=== PATIENT | female | born 1935 | race Caucasian/White ===

== ENCOUNTER → 2017-01-29 | Outpatient (CLI) | payer MEDICARE, BC ==
[~2017-01-29] MED LIST: AMBI10TA PO; LEXA10TA PO; LORA-392 PO; LORTA5 PO
[2017-01-29 15:44] LABS: HEMATOCRIT 42.2 % (35.0-46.0); MEAN CELL VOLUME 96.9 FL (80.0-100.0); MEAN CORPUSCULAR HEMOGLOBIN 33.2 PG (27.0-34.0); MEAN CORPUSCULAR HGB CONC 34.3 % (32.0-36.0); PLATELET COUNT 110 TH/MM3 (150-450); RED BLOOD COUNT 4.36 MIL/MM3 (4.00-5.30); RED CELL DISTRIBUTION WIDTH 13.2 % (11.6-17.2); REVIEW FLAG FINAL; WHITE BLOOD COUNT 4.3 TH/MM3 (4.0-11.0)
[2017-01-29 16:08] LABS: ALT (GPT) 25 U/L (10-53); ANION GAP 9 MEQ/L (5-15); AST (GOT) 43 U/L (15-37); BICARBONATE 24.7 MEQ/L (21.0-32.0); BLOOD UREA NITROGEN 17 MG/DL (7-18); CHLORIDE 106 MEQ/L (98-107); GLOMERULAR FILTRATION RATE 30 ML/MIN (>89); GLUCOSE,FASTING 93 MG/DL (74-99); SODIUM (NA) 140 MEQ/L (136-145)
[2017-01-29 16:10] LABS: POTASSIUM 4.5 MEQ/L (3.5-5.1)
[2017-01-29 16:30] LABS: ALKALINE PHOSPHATASE 61 U/L (45-117); HDL CHOLESTEROL 47.9 MG/DL (40.0-60.0); LDL CHOLESTEROL 122 MG/DL (0-99); LDL CHOLESTEROL DIRECT 136 MG/DL (0-99); TOTAL BILIRUBIN ADULT 0.6 MG/DL (0.2-1.0)
[2017-01-29 19:59] LABS: WESTERGREN SEDIMENTATION RATE 12 mm/hr (0-30)
== END ==
LOC: PLAB 11:48
PROVIDERS: ATTEND Family Medicine
DX: R53.83 Other fatigue (principal); E78.4 Other hyperlipidemia; M35.3 Polymyalgia rheumatica; E53.8 Deficiency of other specified B group vitamins
CPT/HCPCS: 36415; 80053; 80061; 82607; 83721; 84443; 85027; 85652

== ENCOUNTER 2017-12-06 19:47 | Emergency (ER) | payer MEDICARE, BC ==
[~2017-12-06] VITALS: Ht 167.6 cm; Wt 85.8 kg
[2017-12-06 19:55] VITALS: BP 141/70; PULSE 63; RESP 16; TEMP 97.8; O2SAT 96
[2017-12-06] MEDS ORDERED: AMBI10TA PO (20:27)
[2017-12-06] MEDS ORDERED: LORA-392 PO (20:27)
[2017-12-06] MEDS ORDERED: HYDR-3366 PO (20:27)
[2017-12-06] MEDS ORDERED: LEXA10TA PO (20:27)
--- NOTE | 2017-12-06 21:11 | RADRPT ---
EXAM DATE/TIME: 12/06/2017 20:48 [place] COMPARISON: CT BRAIN W/O CONTRAST, January 29, 2016, 18:16. INDICATIONS : Trauma fall, hit left side of head. RADIATION DOSE: 60.00 CTDIvol (mGy) MEDICAL HISTORY : Cardiovascular disease. SURGICAL HISTORY : None. ENCOUNTER: Initial ACUITY: 1 day PAIN SCALE: 7/10 LOCATION: Left cranial TECHNIQUE: Multiple contiguous axial images were obtained of the head. Using automated exposure control and adj ustment of the mA and/or kV according to patient size, radiation dose was kept as low as reasonably a chievable to obtain optimal diagnostic quality images. DICOM format image data is available electro nically for review and comparison. FINDINGS: CEREBRUM: There is stable moderate generalized atrophy. Ventricles are normal in size given the degree of atrop hy present. No evidence of midline shift, mass lesion, hemorrhage or acute infarction. No extra-axi al fluid collections are seen. POSTERIOR FOSSA: The cerebellum and brainstem are intact. The 4th ventricle is midline. The cerebellopontine angle i s unremarkable. EXTRACRANIAL: Visualized sinuses are clear. SKULL: The calvaria is intact. No evidence of skull fracture. CONCLUSION: No acute intracranial abnormality is identified. There is stable generalized atrophy. Aden Douglas MD on December 06, 2017 at 21:08 Board Certified Radiologist. This report was verified electronically.
--- NOTE | 2017-12-06 21:25 | PD ---
HPI . Head injury Chief Complaint: Fall Time Seen by Provider: 20:20 Travel History International Travel<30 days: No Contact w/Intl Traveler<30days: No Traveled to known affect area: No History of Present Illness HPI Patient presents for the evaluation of an injury to her head. She reportedly fell from a chair to the floor. There was no loss of consciousness. She does not take any anticoagulant. She is complaining of localized pain. She rates the pain at 9/10 and has not taken anything for it prior to arrival. Pain is exacerbated by palpation. PFSH Past Medical History Arthritis: Yes Anxiety: Yes (RECENT) Depression: Yes (RECENT) Cancer: Yes Cardiovascular Problems: Yes High Cholesterol: Yes Chemotherapy: Yes Diminished Hearing: No Gastrointestinal Disorders: Yes GERD: Yes Genitourinary: Yes Implanted Vascular Access Dvce: No Musculoskeletal: Yes Neurologic: Yes Psychiatric: Yes Reproductive: No Respiratory: No Tetanus Vaccination: < 5 Years Influenza Vaccination: Yes PNEUMOCCOCAL Vaccine (Year): 2009 ?: Not Menopausal: Yes Tubal Ligation: Yes Past Surgical History Other Surgery: No Social History Alcohol Use: No Tobacco Use: No Substance Use: No Allergies-Medications (Allergen,Severity, Reaction): Coded Allergies: cefadroxil (Unverified Allergy, Mild, 12/06/17) erythromycin base (Unverified Allergy, Mild, 12/06/17) penicillin G (Unverified Allergy, Mild, 12/06/17) Reported Meds & Prescriptions Reported Meds & Active Scripts Active Reported Ambien (Zolpidem Tartrate) 10 Mg Tab 10 Mg PO HS PRN Ativan (Lorazepam) 0.5 Mg Tab 0.5 Mg PO BID PRN Prentiss (Hydrocodone-Acetaminophen) 10-325 Mg Tab 1 Tab PO Q4H PRN Lexapro (Escitalopram Oxalate) 10 Mg Tab 10 Mg PO DAILY Review of Systems Except as stated in HPI: all other systems reviewed are Neg Physical Exam Narrative GENERAL: Awake and alert and in no acute distress. SKIN: Warm and dry. HEAD: Contusion palpable on the left side of her scalp. EYES: Pupils are equal. Extraocular movements are intact. NECK: Normal range of motion. RESPIRATORY: Nonlabored respirations. MUSCULOSKELETAL: Atraumatic. NEUROLOGICAL: A and O 3. She has been observed walking to the bathroom with no focal neurological deficits. PSYCHIATRIC: Appropriate mood and affect. Data Data Last Documented VS Vital Signs Date Time Temp Pulse Resp B/P (MAP) Pulse Ox O2 Delivery O2 Flow Rate FiO2 12/06/17 20:24 Room Air 12/06/17 19:55 97.8 63 16 141/70 (93) [address] Brain W/O Iv Contrast(Rout) (12/06/17 20:21) Ed Discharge Order (12/06/17 21:40) MDM Medical Decision Making Medical Screen Exam Complete: Yes Emergency Medical Condition: Yes Differential Diagnosis My differential diagnosis of head trauma includes but is not limited to scalp contusion, concussion, intracerebral hemorrhage. Narrative Course This patient presents for the evaluation of an injury to her head. She fell from a chair and struck her head. There was no reported loss of consciousness. She does not take an anticoagulant. Last Impressions Head CT 12/06/172020 Signed Impressions: Service Date/Time: Wednesday, December 06, 2017 20:48 - CONCLUSION: No acute intracranial abnormality is identified. There is stable generalized atrophy. Aden Douglas MD Diagnosis Primary Impression: Scalp contusion Qualified Codes: S00.03XA - Contusion of scalp, initial encounter Patient Instructions: General Instructions, Scalp Contusion in Adults (ED) Disposition: 01 DISCHARGE HOME Condition: Stable Talita Reyes MD Dec 06, 2017 21:25
== END 2017-12-06 21:50 | disposition home or self-care (01) ==
LOC: PHEFT 19:47
DX: S00.03XA Contusion of scalp, initial encounter (principal); E78.00 Pure hypercholesterolemia, unspecified; I25.10 Atherosclerotic heart disease of native coronary artery without angina pectoris; F32.9 Major depressive disorder, single episode, unspecified; W07.XXXA Fall from chair, initial encounter; Z88.0 Allergy status to penicillin; Z88.1 Allergy status to other antibiotic agents; Z79.899 Other long term (current) drug therapy
CPT/HCPCS: 70450; 99283

== ENCOUNTER 2018-03-21 18:47 | Emergency (ER) | payer MEDICARE, BC ==
[~2018-03-21 18:47] MED LIST changes: +HYDR-3366 PO; -LORTA5 PO
[2018-03-21 18:56] VITALS: BP 176/75; PULSE 70; RESP 20; TEMP 98.2; O2SAT 97
[2018-03-21] MEDS ORDERED: VITA250C3 CHEW (19:16)
[2018-03-21] MEDS ORDERED: CYAN30003 SL (19:16)
[2018-03-21 19:17] VITALS: BP 136/84; PULSE 60; RESP 18; O2SAT 94
--- NOTE | 2018-03-21 19:41 | PD ---
HPI Chief Complaint: Dizziness Time Seen by Provider: 19:31 Travel History International Travel<30 days: No Contact w/Intl Traveler<30days: No Traveled to known affect area: No History of Present Illness HPI 83-year-old female presents to the emergency department from her assisted living facility by private transportation the care of her daughter for complaint of dizziness and fall. According to the daughter the patient has history of dementia/memory disturbance anxiety depression insomnia and arthritis. Patient has had several falls within the past 6 months. Patient was seen in November for a fall CT brain noncontrast at that time revealed no acute abnormality more recently within the past couple months she has had another fall landed on her buttock and was not evaluated for that fall patient has complained of some hip pain since that time. Patient fell again today after complaint of preceding dizziness. Patient continues to complain of dizziness and has been unsteady on her feet reportedly since the fall. No complaint of pain except for posterior occiput and upper back area. Patient is not aware of having loss of consciousness and staff did not report loss of consciousness. Patient does have a small laceration abrasion to the left posterior occiput scalp. Patient denies any neck pain. Patient denies any low back pain. Patient has had chronic buttock and right hip pain since her prior fall. Daughter reports that patient has had some increased confusion since Friday or of this week which sometimes occurs according to the daughter yesterday reportedly patient was quite confused but patient was not sent for evaluation at that time. Due to ongoing confusion today patient had a urine specimen collected and sent for resulting which did not show evidence of infection. Patient apparently continued to complain of dizziness and then finally had a fall just prior to arrival to the emergency department. Patient does not report increased dizziness. Patient typically ambulates with the assistance of a walker. Patient takes no blood thinning agents. No prior history of rhythm disturbance. No reported history of prior TIA or CVA. Patient here does not complain of headache pain. Patient reported pain is 3/10 in intensity. Patient's history primarily as provided by the daughter but intermittently substantiated by the patient. Unable to identify exacerbating or alleviating factors. PFSH Past Medical History Narrative Medical Arthritis anxiety depression insomnia dementia/memory loss dyslipidemia lymphoma status post chemotherapy GERD UTI; no tobacco use no alcohol use; nursing notes and medical record review Arthritis: Yes Anxiety: Yes (RECENT) Depression: Yes (RECENT) Cancer: Yes Cardiovascular Problems: Yes High Cholesterol: Yes Chemotherapy: Yes Diminished Hearing: No Endocrine: No Gastrointestinal Disorders: Yes GERD: Yes Genitourinary: Yes Immune Disorder: No Implanted Vascular Access Dvce: No Musculoskeletal: Yes Neurologic: Yes Psychiatric: Yes Reproductive: No Respiratory: No Tetanus Vaccination: < 5 Years Influenza Vaccination: Yes PNEUMOCCOCAL Vaccine (Year): 2009 Menopausal: Yes Tubal Ligation: Yes Past Surgical History Other Surgery: No Social History Alcohol Use: No Tobacco Use: No Substance Use: No Allergies-Medications (Allergen,Severity, Reaction): Coded Allergies: cefadroxil (Unverified Allergy, Mild, 03/21/18) erythromycin base (Unverified Allergy, Mild, 03/21/18) penicillin G (Unverified Allergy, Mild, 03/21/18) Reported Meds & Prescriptions Reported Meds & Active Scripts Active Reported Vitamin C (Ascorbic Acid) 250 Mg Chew 1,000 Mg CHEW DAILY B-12 (Cyanocobalamin) 3,000 Mcg Subl 3,000 Mcg SL DAILY Ambien (Zolpidem Tartrate) 10 Mg Tab 10 Mg PO HS PRN Ativan (Lorazepam) 0.5 Mg Tab 0.5 Mg PO BID PRN Taiban (Hydrocodone-Acetaminophen) 10-325 Mg Tab 1 Tab PO Q4H PRN Lexapro (Escitalopram Oxalate) 10 Mg Tab 10 Mg PO DAILY Review of Systems Except as stated in HPI: all other systems reviewed are Neg General / Constitutional: No: Fever, Chills HENT: No: Congestion Cardiovascular: No: Chest Pain or Discomfort Respiratory: No: Shortness of Breath Gastrointestinal: No: Nausea, Vomiting, Abdominal Pain Genitourinary: No: Dysuria, Flank Pain Musculoskeletal: Positive: Pain (upper mid back), No: Myalgias, Arthralgias Skin: No Rash Neurologic: Positive: Weakness, Dizziness, Ataxia, Change in Mentation, No: Focal Abnormalities, Coordination Problem, Headache, Slurred Speech, Paresthesia , Sensory Disturbance Psychiatric: Positive: Anxiety, Depression, No: Suicidal Ideations Endocrine: No: Heat Intolerance, Cold Intolerance Hematologic/Lymphatic: No: Easy Bruising Physical Exam Narrative GENERAL: Well-developed well-nourished elderly female in no acute distress no respiratory distress GCS 15 SKIN: Warm and dry. HEAD: Atraumatic. Normocephalic. Except for right posterior occiput abrasion subcentimeter laceration with no palpable bony abnormality. EYES: Pupils equal and round. No scleral icterus. No injection or drainage. ENT: No nasal bleeding or discharge. Mucous membranes pink and moist. Airway is patent. NECK: Trachea midline. No JVD. No midline tenderness to direct palpation along the cervical spine no bony step-off. CARDIOVASCULAR: Regular rate and rhythm. RESPIRATORY: No accessory muscle use. Clear to auscultation. Breath sounds equal bilaterally. GASTROINTESTINAL: Abdomen soft, non-tender, nondistended. Hepatic and splenic margins not palpable. MUSCULOSKELETAL: Extremities without clubbing, cyanosis, or edema. No obvious deformities. Mild tenderness to palpation along the mid thoracic spine no bony abnormality no lumbar spine tenderness no SI joint tenderness pelvis is stable. No CVA tenderness. NEUROLOGICAL: Awake and alert. No obvious cranial nerve deficits. Motor grossly within normal limits. Five out of 5 muscle strength in the arms and legs. No pronator drift. Normal speech. PSYCHIATRIC: Appropriate mood and affect; insight and judgment normal. Data Data Last Documented VS Vital Signs Date Time Temp Pulse Resp B/P (MAP) Pulse Ox O2 Delivery O2 Flow Rate FiO2 03/21/18 21:34 66 18 138/82 (100) 95 Room Air 03/21/18 18:56 98.2 Orders Orders Electrocardiogram (03/21/18 19:31) Basic Metabolic Panel (Bmp) (03/21/18 19:31) Complete Blood Count With Diff (03/21/18 19:31) Magnesium (Mg) (03/21/18 19:31) Ckmb (Isoenzyme) Profile (03/21/18 19:31) Troponin I (03/21/18 19:31) Act Partial Throm Time (Ptt) (03/21/18 19:31) Prothrombin Time / Inr (Pt) (03/21/18 19:31) Chest, Single Ap (03/21/18 19:31) Ct Brain W/O Iv Contrast(Rout) (03/21/18 19:31) Ecg Monitoring (03/21/18 19:31) Iv Access Insert/Monitor (03/21/18 19:31) Oximetry (03/21/18 19:31) Sodium Chloride 0.9% Flush (Ns Flush) (03/21/18 19:45) Spine, Thoracic-Ap/Lat/Sw(3vw) (03/21/18 ) Pelvis, Ap Only (Routine) (03/21/18 ) CKMB (03/21/18 20:10) CKMB% (03/21/18 20:10) Sodium Chlorid 0.9% 500 Ml Inj (Ns 500 M (03/21/18 21:45) Urinalysis - C+S If Indicated (03/21/18 22:05) Urine Culture (03/21/18 22:00) Nitrofurantoin Monohyd Macrocr (Macrobid (03/21/18 23:00) Ed Discharge Order (03/21/18 23:14) Labs Laboratory Tests Test 03/21/18 20:10 03/21/18 22:00 White Blood Count 5.4 TH/MM3 Red Blood Count 4.22 MIL/MM3 Hemoglobin 13.9 GM/DL Hematocrit 40.7 % Mean Corpuscular Volume 96.5 FL Mean Corpuscular Hemoglobin 33.0 PG Mean Corpuscular Hemoglobin Concent 34.2 % Red Cell Distribution Width 13.5 % Platelet Count 178 TH/MM3 Mean Platelet Volume 8.1 FL Neutrophils (%) (Auto) 83.3 % Lymphocytes (%) (Auto) 10.5 % Monocytes (%) (Auto) 4.8 % Eosinophils (%) (Auto) 0.9 % Basophils (%) (Auto) 0.5 % Neutrophils # (Auto) 4.5 TH/MM3 Lymphocytes # (Auto) 0.6 TH/MM3 Monocytes # (Auto) 0.3 TH/MM3 Eosinophils # (Auto) 0.0 TH/MM3 Basophils # (Auto) 0.0 TH/MM3 CBC Comment DIFF FINAL Differential Comment Prothrombin Time 10.5 SEC Prothromb Time International Ratio 1.0 RATIO Activated Partial Thromboplast Time 22.0 SEC Blood Urea Nitrogen 18 MG/DL Creatinine 1.30 MG/DL Random Glucose 144 MG/DL Calcium Level 9.3 MG/DL Magnesium Level 2.2 MG/DL Sodium Level 141 MEQ/L Potassium Level 4.0 MEQ/L Chloride Level 106 MEQ/L Carbon Dioxide Level 27.8 MEQ/L Anion Gap 7 MEQ/L Estimat Glomerular Filtration Rate 39 ML/MIN Total Creatine Kinase 260 U/L Creatine Kinase MB 2.9 NG/ML Creatine Kinase MB % 1.1 % Troponin I LESS THAN 0.02 NG/ML Urine Color YELLOW Urine Turbidity CLEAR Urine pH 6.0 Urine Specific Daisy LESS/EQUAL 1.005 Urine Protein NEG mg/dL Urine Glucose (UA) NEG mg/dL Urine Ketones NEG mg/dL Urine Occult Blood NEG Urine Nitrite NEG Urine Bilirubin NEG Urine Urobilinogen 0.2 MG/DL Urine Leukocyte Esterase SMALL Urine RBC 0-3 /hpf Urine WBC 9-14 /hpf Urine WBC Clumps FEW Urine Squamous Epithelial Cells 0-5 /hpf Microscopic Urinalysis Comment CULTURE INDICATED MDM Medical Decision Making Medical Screen Exam Complete: Yes Emergency Medical Condition: Yes Medical Record Reviewed: Yes (Cardiac catheterization [address] Randolph showed normal LV function and 20-30% left main disease as well as 20-30% mid distal right coronary artery disease with recommendation for medical management and lowering of patient's elevated lipids) Interpretation(s) EKG sinus rhythm rate 63 first-degree AV block no acute ST elevation injury pattern or ectopy noted Troponin I: Less than 0.02, not elevated Last Impressions Head CT 03/21/181930 Signed Impressions: CONCLUSION: 1. No acute intracranial abnormalities. Cortical volume loss. Chest X-Ray 03/21/181930 Signed Impressions: CONCLUSION: Elevated right hemidiaphragm with minimal basilar atelectasis. Thoracic Spine X-Ray 03/21/18 0000 Signed Impressions: CONCLUSION: Moderate degenerative disc disease. No acute bony abnormality. Pelvis X-Ray 03/21/18 0000 Signed Impressions: CONCLUSION: No acute fracture. Mild osteopenia. CBC & BMP Diagram 03/21/18 20:10 Calcium Level 9.3, Magnesium Level 2.2 Vital Signs Date Time Temp Pulse Resp B/P (MAP) Pulse Ox O2 Delivery O2 Flow Rate FiO2 03/21/18 21:34 66 18 138/82 (100) 95 Room Air 03/21/18 19:59 96 Room Air 03/21/18 19:17 60 18 136/84 (101) 94 Room Air 03/21/18 19:17 60 96 Room Air 03/21/18 18:56 98.2 70 20 176/75 (108) 97 Differential Diagnosis Dizziness, vertigo, labyrinthitis, TIA, CVA, arrhythmia, anemia, minor closed head injury, ICH, sepsis, ACS, UTI Narrative Course Patient presents with urinalysis report from earlier today which shows no evidence of acute infectious process no WBCs no bacteria no nitrites culture not indicated; patient placed on hall monitor continuous pulse oximetry EKG ordered specimens collected and sent for resulting CT brain noncontrast ordered along with limited thoracic spine x-ray and pelvic x-ray ( reports pain to area since prior fall that was not evaluated). Per medical record last tetanus booster 01/29/16 CT brain noncontrast reveals no acute intracranial process or bony abnormality or skull fracture remainder of imaging studies reveal no acute abnormality Patient resting comfortably Patient given a bolus of normal saline 500 cc Urinalysis is abnormal oral antibiotic Macrobid 100 mg by mouth and prescription for Macrobid cultures pending Patient is stable at this time for outpatient follow-up with her primary care provider daughter is staying with the patient overnight to decrease risk of unobserved or unattended care related fall at her assisted living facility; patient is to return the emergency department for fever worsening symptoms or any concerns or change in condition. Patient tolerating oral hydration well Diagnosis Primary Impression: Dizziness Additional Impressions: UTI (urinary tract infection) Renal insufficiency Scalp abrasion Minor closed head injury Referrals: Primary Care Physician 2 days Patient Instructions: General Instructions Additional Instructions: Complete course of antibiotic Follow head injury precautions 24 hours Monitor closely for risk of fall Encourage fluid hydration Follow-up with primary care provider Administer as needed acetaminophen/Tylenol for minor pain or for fever 100.4F or greater Return to the emergency department for any concerns or change in condition May apply ice pack intermittently to areas of soft tissue contusion or injury as needed for the first 12-24 hours intermittently Keep wound site clean and dry Med/Other Pt SpecificInfo: Prescription(s) given Scripts Nitrofurantoin Monohydrate Macrocrystals (Macrobid) 100 Mg Cap 100 MG PO BID for Infection for 7 Days, #14 CAP 0 Refills Prov: Gaby Leon MD 03/21/18 Disposition: 01 DISCHARGE HOME Condition: Stable Gaby Leon MD Mar 21, 2018 19:41
[2018-03-21] MEDS ORDERED: SODIUM CHLORIDE 0.9% FLUSH 10 ML FLUSH IVF PRN (19:45)
[2018-03-21 19:59] VITALS: O2SAT 96
--- NOTE | 2018-03-21 20:07 | RADRPT ---
EXAM DATE: 03/21/2018 7:59 PM EDT AGE/SEX: 83 years / Female INDICATIONS: Dizziness. Fell and hit head, no loss of consciousness. CLINICAL DATA: This is the patient's initial encounter. Patient reports that signs and symptoms have been present for 1 day and indicates a pain score of 2/10. MEDICAL/SURGICAL HISTORY: Cardiovascular disease. Dementia. Tubal ligation. RADIATION DOSE: 58.40 CTDI (mGy) COMPARISON: [facility], CT BRAIN W/O CONTRAST, 12/06/2017. . TECHNIQUE: CT of the head without contrast. Using automated exposure control and adjustment of the mA and/or kV according to patient size, radiation dose was kept as low as reasonably achievable to ob tain optimal diagnostic quality images. FINDINGS: Cerebrum: The ventricles are normal for age. No evidence of midline shift, mass lesion, hemorrhage or acute infarction. No extraaxial fluid collections are seen. Posterior Fossa: The cerebellum and brainstem are intact. The 4th ventricle is midline. The cerebe llopontine angle is unremarkable. Extracranial: The visualized portion of the orbits is intact. Skull: The calvaria is intact. No evidence of skull fracture. CONCLUSION: 1. No acute intracranial abnormalities. Cortical volume loss. Electronically signed by: Owen Rossi MD 03/21/2018 8:05 PM EDT
[2018-03-21 20:35] LABS: AUTOMATED NEUTROPHIL # 4.5 TH/MM3 (1.8-7.7); BASOPHIL % 0.5 % (0.0-2.0); EOSINOPHIL % 0.9 % (0.0-4.0); HEMATOCRIT 40.7 % (35.0-46.0); HEMOGLOBIN 13.9 GM/DL (11.6-15.3); LYMPH % 10.5 % (9.0-44.0); LYMPHOCYTE # 0.6 TH/MM3 (1.0-4.8); MEAN CELL VOLUME 96.5 FL (80.0-100.0); MEAN CORPUSCULAR HGB CONC 34.2 % (32.0-36.0); MEAN PLATELET VOLUME 8.1 FL (7.0-11.0); MONO % 4.8 % (0.0-8.0); MONOCYTE # 0.3 TH/MM3 (0-0.9); NEUT % 83.3 % (16.0-70.0); PLATELET COUNT 178 TH/MM3 (150-450); RED BLOOD COUNT 4.22 MIL/MM3 (4.00-5.30); RED CELL DISTRIBUTION WIDTH 13.5 % (11.6-17.2); WHITE BLOOD COUNT 5.4 TH/MM3 (4.0-11.0)
[2018-03-21 20:37] LABS: CHLORIDE 106 MEQ/L (98-107); SODIUM (NA) 141 MEQ/L (136-145)
[2018-03-21 20:40] LABS: BICARBONATE 27.8 MEQ/L (21.0-32.0); BLOOD UREA NITROGEN 18 MG/DL (7-18); CALCIUM 9.3 MG/DL (8.5-10.1); GLUCOSE,RANDOM 144 MG/DL (74-106); MAGNESIUM 2.2 MG/DL (1.5-2.5)
--- NOTE | 2018-03-21 20:42 | RADRPT ---
EXAM DATE: 03/21/2018 8:38 PM EDT AGE/SEX: 83 years / Female INDICATIONS: Fall. Mid back pain. CLINICAL DATA: This is the patient's initial encounter. Patient reports that signs and symptoms have been present for 1 day and indicates a pain score of 5/10. MEDICAL/SURGICAL HISTORY: Cardiovascular disease. Tubal ligation. COMPARISON: [facility], CHEST PA & LAT, 12/11/2010. . FINDINGS: Moderate degenerative disc disease throughout the thoracic spine. Mild superior endplate depression a t L1 which is smooth and may be old. No acute fracture identified in the thoracic spine. CONCLUSION: Moderate degenerative disc disease. No acute bony abnormality. Electronically signed by: Owen Rossi MD 03/21/2018 8:41 PM EDT
--- NOTE | 2018-03-21 20:43 | RADRPT ---
EXAM DATE: 03/21/2018 8:37 PM EDT AGE/SEX: 83 years / Female INDICATIONS: Fall. Right pelvic pain. CLINICAL DATA: This is the patient's initial encounter. Patient reports that signs and symptoms have been present for 1 day and indicates a pain score of 5/10. MEDICAL/SURGICAL HISTORY: Cardiovascular disease. Tubal ligation. COMPARISON: No prior exams available for comparison. FINDINGS: Examination of the pelvis demonstrates no evidence of fracture or dislocation. Bony mineralization i s mild osteopenia. There is no widening of the sacroiliac joints. No foreign body is identified. CONCLUSION: No acute fracture. Mild osteopenia. Electronically signed by: Owen Rossi MD 03/21/2018 8:41 PM EDT
[2018-03-21 20:44] LABS: GLOMERULAR FILTRATION RATE 39 ML/MIN (>89)
[2018-03-21 20:48] LABS: TROPONIN I LESS THAN 0.02 NG/ML (0.02-0.05)
[2018-03-21 20:51] LABS: PROTHROMBIN TIME - PATIENT 10.5 SEC (9.8-11.6)
--- NOTE | 2018-03-21 20:59 | RADRPT ---
EXAM DATE: 03/21/2018 8:40 PM EDT AGE/SEX: 83 years / Female INDICATIONS: Fall. Weakness. CLINICAL DATA: This is the patient's initial encounter. Patient reports that signs and symptoms have been present for 1 day and indicates a pain score of 0/10. MEDICAL/SURGICAL HISTORY: Cardiovascular disease. Tubal ligation. COMPARISON: [facility], CHEST PA & LAT, 11/05/2010. . FINDINGS: Elevated right hemidiaphragm. Minimal basilar atelectasis. No dense consolidation or effusion. Heart size mildly enlarged. No pneumothorax. CONCLUSION: Elevated right hemidiaphragm with minimal basilar atelectasis. Electronically signed by: Owen Rossi MD 03/21/2018 8:58 PM EDT
[2018-03-21 21:34] VITALS: BP 138/82; PULSE 66; RESP 18; O2SAT 95
[2018-03-21] MEDS ORDERED: SODIUM CHLORID 0.9% 500 ML INJ 500 ML IV ONE (21:45)
[2018-03-21 22:18] LABS: BILIRUBIN, URINE NEG (NEG); BLOOD, URINE NEG (NEG); GLUCOSE,URINE NEG (NEG); KETONE, URINE NEG (NEG); NITRITE,URINE NEG (NEG); URINE COLOR YELLOW (YELLW/STRAW); URINE LEUKOCYTE ESTERASE SMALL (NEG)
[2018-03-21 22:26] LABS: RBC, URINE 0-3 /hpf (0-3); SQUAMOUS EPITHELIAL CELL URINE 0-5 /hpf (0-5); WHITE BLOOD CELL CLUMPS FEW
[2018-03-21] MEDS ORDERED: NITROFURANTOIN MONOHYD MACROCR 100 MG CAP PO ONE (23:00)
[2018-03-21] MEDS ORDERED: MACR100C2 PO (23:15)
[2018-03-21 23:41] VITALS: BP 132/80; PULSE 62; RESP 18; O2SAT 95
--- NOTE | 2018-03-22 14:38 | EKG ---
Date Performed: 03/21/2018 Time Performed: 19:40:29 PTAGE: 83 years EKG: Sinus rhythm WITH FIRST DEGREE AV BLOCK LOW QRS VOLTAGE IN PRECORDIAL LEADS POSSIBLE ANTERIOR MYOCARDIAL INFARCTI ON ABNORMAL ECG PREVIOUS TRACING : 12/11/2010 16.16 Since the previous tracing, no significant change noted DOCTOR: Cem Rader Interpretating Date/Time 03/22/2018 14:36:01
== END 2018-03-21 23:44 | disposition home or self-care (01) ==
LOC: PHED 18:47
DX: R42 Dizziness and giddiness (principal); N39.0 Urinary tract infection, site not specified; N28.9 Disorder of kidney and ureter, unspecified; S00.01XA Abrasion of scalp, initial encounter; W19.XXXA Unspecified fall, initial encounter; I44.0 Atrioventricular block, first degree; R94.31 Abnormal electrocardiogram [ECG] [EKG]; F03.90 Unspecified dementia, unspecified severity, without behavioral disturbance, psychotic disturbance, mood disturbance, and anxiety; F41.9 Anxiety disorder, unspecified; F32.9 Major depressive disorder, single episode, unspecified; G47.00 Insomnia, unspecified; M19.90 Unspecified osteoarthritis, unspecified site; G89.29 Other chronic pain; M54.6 Pain in thoracic spine; M25.551 Pain in right hip; R53.1 Weakness; R29.6 Repeated falls; E78.5 Hyperlipidemia, unspecified; K21.9 Gastro-esophageal reflux disease without esophagitis; E78.00 Pure hypercholesterolemia, unspecified; I25.10 Atherosclerotic heart disease of native coronary artery without angina pectoris; Z85.72 Personal history of non-Hodgkin lymphomas
CPT/HCPCS: 70450; 71045; 72072; 72170; 80048; 81001; 82550; 82552; 83735; 84484; 85025; 85610; 85730; 87086; 93005; 96360; 99285; J7040

== ENCOUNTER 2018-06-11 12:51 | Inpatient (IN) ==
--- NOTE | 2018-06-11 14:09 | ED ---
HPI General Chief complaint: Head Injury Stated complaint: Headache/Dizzy x friday/sent by Dr Gross Time Seen by Provider: 06/11/18 15:44 Source: patient and family Mode of arrival: ambulatory Limitations: altered mental status History of Present Illness HPI Narrative: Dementia Patient is a resident at the nursing facility patient fell and struck her right side of her head. The patient did not have any imaging or referral to the emergency department for evaluation. Dr. Gross patient's primary care doctor requested the patient to coming to the ER for a CT head, since the patient continues to have dizziness since she struck her head. This apparently was not witnessed. And so it is difficult to truly evaluate if this is secondary to the blunt head trauma or if the dizziness preceded the fall and blunt head trauma. Therefore the patient will have an evaluation such as a syncopal evaluation with the addition of imaging to certain areas due to the patient complaining of pain to abdomen and right hip area. Patient does not actively complain of any pain however it was noted during examination of the patient grimaced MD Complaint: fall Onset (ago): day(s) (4) Mechanism of Injury: fall Place: other (nh) Loss of Consciousness: unsure Location of injury: parietal and temporal (rt) Radiation: none Other Injuries: none Associated symptoms: denies other symptoms Related Data Home Medications Medication Instructions Recorded Confirmed Macrobid 100 mg PO BID 04/14/18 06/11/18 ascorbic acid (vitamin C) 1,000 mg CHEW DAILY 04/14/18 06/11/18 cyanocobalamin (vitamin B-12) 3,000 mcg SUBLINGUAL DAILY 04/14/18 06/11/18 escitalopram oxalate 10 mg PO DAILY 04/14/18 06/11/18 hydrocodone-acetaminophen 10 mg PO Q4H PRN 04/14/18 06/11/18 lorazepam 0.5 mg PO BID PRN 04/14/18 06/11/18 zaleplon 1 tab PO HS 04/14/18 06/11/18 Previous Rx's Medication Instructions Recorded oxycodone-acetaminophen 1 tab PO Q6H PRN #14 tab 04/14/18 tamsulosin [Flomax] 0.4 mg PO DAILY #4 cap 04/14/18 Allergies Allergy/AdvReac Type Severity Reaction Status Date / Time cefadroxil Allergy Severe Swelling Verified 06/11/18 13:11 of Lip/Tongue/Throat erythromycin base Allergy Severe Swelling Verified 06/11/18 13:11 of Lip/Tongue/Throat penicillin G Allergy Severe Swelling Verified 06/11/18 13:11 of Lip/Tongue/Throat sulfamethoxazole AdvReac Intermediate Dizziness Verified 06/11/18 13:11 [From Bactrim] trimethoprim [From Bactrim] AdvReac Intermediate Dizziness Verified 06/11/18 13: 11 Review of Systems ROS: all other systems reviewed are negative [facility] Medical History Medical History Arthritis (Acute) Depression (Acute) Dyslipidemia (Acute) GERD (gastroesophageal reflux disease) (Acute) History of dementia (Acute) History of follicular lymphoma (Acute) History of spinal fracture (Acute) History of urinary tract infection (Acute) Insomnia (Acute) Surgical History Surgical History History of tubal ligation (Acute) Social History Social History Substance History: No History of Abuse Second Hand Smoke Exposure: No Smoking Status: Former smoker How Often Do You Have a Drink Containing Alcohol: Never Recent Travel in [facility] within the Last 8 Weeks: No Recent Out of Country Travel within the Last 8 Weeks: No Immunization History Tetanus Immunization: Unsure Hx Influenza Vaccine This Season: Yes Exam Narrative Exam Narrative: GENERAL: elderly female, dry oral mucosa, skin tenting and other signs of dehydration present.... Patient pleasant but has short-term memory deficiency and a history of dementia SKIN: Warm and dry. HEAD: Patient has an aged ecchymotic area over the right temporal region without palpable crepitus depression or deformity.. Normocephalic. EYES: Pupils equal and round. No scleral icterus. No injection or drainage. ENT: No nasal bleeding or discharge. Mucous membranes pink and dry. No hemotympanum NECK: Trachea midline. No JVD. CARDIOVASCULAR: Regular rate and rhythm. no rubs or gallops RESPIRATORY: No accessory muscle use. Clear to auscultation. Breath sounds equal bilaterally. GASTROINTESTINAL: Abdomen soft, ?mildly tender to palpation diffusely , nondistended. No rebound or guarding MUSCULOSKELETAL: Extremities without clubbing, cyanosis, or edema. No obvious deformities. Tenderness to palpation over the right hip area NEUROLOGICAL: Awake and alert. No obvious cranial nerve deficits. Motor grossly within normal limits. Five out of 5 muscle strength in the arms and legs. Normal speech. PSYCHIATRIC: Appropriate mood and affect; insight and judgment normal. Course Reevaluation(s) Reevaluation #1: Patient reevaluated and found to have persistent nausea and mild cephalgia despite previous treatment. Patient has had reduced fluid ingestion for the last 2 days; status post head injury with questionable syncopal episode. Reevaluation shows patient to have persistent dehydration and no significant injuries other than the contusion to the right temporal frontal region. Time: 17:03 Initial Documented Vital Signs Temperature 98.2 F 06/11/18 13:05 Pulse Rate 62 06/11/18 13:05 Respiratory Rate 18 06/11/18 13:05 Blood Pressure 127/65 06/11/18 13:05 Pulse Oximetry 98 06/11/18 13:05 Last Documented Vital Signs Temperature 97.4 F L 06/15/18 16:00 Pulse Rate 70 06/15/18 16:00 Respiratory Rate 18 06/15/18 16:00 Blood Pressure 130/71 06/15/18 16:00 Pulse Oximetry 98 06/15/18 16:00 Medical Decision Making MDM Narrative Medical decision making narrative: patient signed out pending labs/ct and dispo to dr mares Medical Screen Exam Complete: Yes Emergency Medical Condition: Yes Differential Diagnosis Differential Diagnosis: Intracranial hemorrhage versus skull fracture versus neck fracture versus neck dislocation versus neck subluxation versus small bowel obstruction versus ileus versus colitis versus diverticulitis versus hyponatremia or other electrolyte abnormalities to account for altered mental status. Medical Records Medical records reviewed: Yes I reviewed the patient's medical records. Lab Data Lab results reviewed: Yes I reviewed the patient's lab results. Result diagrams: 06/11/18 14:48 06/11/18 14:48 Lab Results 06/11/18 06/11/18 06/11/18 Range/Units 14:14 14:45 14:48 CBC w Diff Auto diff final WBC 6.9 (4.0-11.0) th/mm3 RBC 4.37 (4.00-5.30) mil/mm3 Hgb 15.2 (11.6-15.3) gm/dL Hct 44.0 (35.0-46.0) % MCV 100.7 H (80.0-100.0) fL MCH 34.8 H (27.0-34.0) pg MCHC 34.6 (32.0-36.0) % RDW 13.3 (11.6-17.2) % Plt Count 162 (150-450) th/mm3 MPV 8.4 (7.0-11.0) fL Neut % (Auto) 73.0 H (16.0-70.0) % Lymph % (Auto) 16.8 (9.0-44.0) % [place] % (Auto) 8.5 H (0.0-8.0) % Eos % (Auto) 0.7 (0.0-4.0) % Baso % (Auto) 1.0 (0.0-2.0) % Neut # (Auto) 5.0 (1.8-7.7) th/mm3 Lymph # (Auto) 1.2 (1.0-4.8) th/mm3 [place] # (Auto) 0.6 (0.0-0.9) th/mm3 Eos # (Auto) 0.0 (0.0-0.4) th/mm3 Baso # (Auto) 0.1 (0.0-0.2) th/mm3 WBC Differential . Differential Comment . PT (9.8-11.6) sec INR Ratio Sodium (136-145) meq/L Potassium (3.5-5.1) meq/L Chloride (98-107) meq/L Carbon Dioxide (21.0-32.0) meq/L Anion Gap (5-15) meq/L BUN (7-18) mg/dL Creatinine (0.50-1.00) mg/dL Estimated GFR (>89) mL/min POC Glucose 91 (68-110) mg/dl Random Glucose (74-106) mg/dL Lactic Acid 1.5 (0.4-2.0) mmol/L Calcium (8.5-10.1) mg/dL Total Bilirubin (0.2-1.0) mg/dL AST (15-37) U/L ALT (10-53) U/L Alkaline Phosphatase (45-117) U/L Total Creatine Kinase (26-192) U/L Troponin I (0.02-0.05) ng/mL Total Protein (6.4-8.2) g/dL Albumin (3.4-5.0) g/dL Lipase (73-393) U/L Urine Color (Yellw/Straw) Urine Clarity (Clear) Urine pH (5.0-8.5) Ur Specific [place] (1.002-1.035) Urine Protein (Neg-Trace) mg/dL Urine Glucose (UA) (Negative) mg/dL Urine Ketones (Negative) mg/dL Urine Occult Blood (Negative) Urine Nitrate (Negative) Urine Bilirubin (Negative) Urine Urobilinogen (Less than 2) mg/dL Ur Leukocyte Esterase (Negative) Urine RBC (0-3) /hpf Urine WBC (0-5) /hpf Urine WBC Clumps (None) Ur Squamous Epith Cells (0-5) /hpf Urine Bacteria (None) /hpf Urine Mucus (Occasional) /lpf Micro UA Comment Ur Microscopic Review Urine Culture Comments CSF Volume (1) mL CSF Supernat Color (1) (Clear) CSF Gross Blood (1) (0) CSF Volume (2) mL CSF Supernat Color (2) (Clear) CSF Gross Blood (2) (0) CSF Volume (3) mL CSF Supernat Color (3) (Clear) CSF Gross Blood (3) (0) CSF Volume (4) mL CSF Supernat Color (4) (Clear) CSF Gross Blood (4) (0) CSF WBC (4) (0-10) /mm3 CSF RBC (4) (None) /mm3 CSF Neutrophils % % CSF Lymphocytes % % CSF Glucose (40-80) mg/dL 06/11/18 06/12/18 06/12/18 Range/Units 14:48 04:20 11:30 CBC w Diff WBC (4.0-11.0) th/mm3 RBC (4.00-5.30) mil/mm3 Hgb (11.6-15.3) gm/dL Hct (35.0-46.0) % MCV (80.0-100.0) fL MCH (27.0-34.0) pg MCHC (32.0-36.0) % RDW (11.6-17.2) % Plt Count (150-450) th/mm3 MPV (7.0-11.0) fL Neut % (Auto) (16.0-70.0) % Lymph % (Auto) (9.0-44.0) % [place] % (Auto) (0.0-8.0) % Eos % (Auto) (0.0-4.0) % Baso % (Auto) (0.0-2.0) % Neut # (Auto) (1.8-7.7) th/mm3 Lymph # (Auto) (1.0-4.8) th/mm3 [place] # (Auto) (0.0-0.9) th/mm3 Eos # (Auto) (0.0-0.4) th/mm3 Baso # (Auto) (0.0-0.2) th/mm3 WBC Differential Differential Comment PT 11.1 (9.8-11.6) sec INR 1.1 Ratio Sodium 140 (136-145) meq/L Potassium 3.8 (3.5-5.1) meq/L Chloride 106 (98-107) meq/L Carbon Dioxide 22.8 (21.0-32.0) meq/L Anion Gap 11 (5-15) meq/L BUN 22 H (7-18) mg/dL Creatinine 1.20 H (0.50-1.00) mg/dL Estimated GFR 43 L (>89) mL/min POC Glucose (68-110) mg/dl Random Glucose 91 (74-106) mg/dL Lactic Acid (0.4-2.0) mmol/L Calcium 9.7 (8.5-10.1) mg/dL Total Bilirubin 0.9 (0.2-1.0) mg/dL AST 25 (15-37) U/L ALT 45 (10-53) U/L Alkaline Phosphatase 57 (45-117) U/L Total Creatine Kinase 59 (26-192) U/L Troponin I Less than 0.02 L (0.02-0.05) ng/mL Total Protein 6.5 (6.4-8.2) g/dL Albumin 3.8 (3.4-5.0) g/dL Lipase 184 (73-393) U/L Urine Color Yellow (Yellw/Straw) Urine Clarity Clear (Clear) Urine pH 5.5 (5.0-8.5) Ur Specific [place] 1.025 (1.002-1.035) Urine Protein Negative (Neg-Trace) mg/dL Urine Glucose (UA) Negative (Negative) mg/dL Urine Ketones 15 H (Negative) mg/dL Urine Occult Blood Negative (Negative) Urine Nitrate Negative (Negative) Urine Bilirubin Negative (Negative) Urine Urobilinogen 0.2 (Less than 2) mg/dL Ur Leukocyte Esterase Small H (Negative) Urine RBC 0-3 (0-3) /hpf Urine WBC 9-20 H (0-5) /hpf Urine WBC Clumps Few H (None) Ur Squamous Epith Cells 0-5 (0-5) /hpf Urine Bacteria (None) /hpf Urine Mucus Few H (Occasional) /lpf Micro UA Comment Culture indicated Ur Microscopic Review Microscopic reviewed Urine Culture Comments Culture indicated CSF Volume (1) mL CSF Supernat Color (1) (Clear) CSF Gross Blood (1) (0) CSF Volume (2) mL CSF Supernat Color (2) (Clear) CSF Gross Blood (2) (0) CSF Volume (3) mL CSF Supernat Color (3) (Clear) CSF Gross Blood (3) (0) CSF Volume (4) mL CSF Supernat Color (4) (Clear) CSF Gross Blood (4) (0) CSF WBC (4) (0-10) /mm3 CSF RBC (4) (None) /mm3 CSF Neutrophils % % CSF Lymphocytes % % CSF Glucose (40-80) mg/dL 06/13/18 06/13/18 06/15/18 Range/Units 12:10 12:10 18:36 CBC w Diff WBC (4.0-11.0) th/mm3 RBC (4.00-5.30) mil/mm3 Hgb (11.6-15.3) gm/dL Hct (35.0-46.0) % MCV (80.0-100.0) fL MCH (27.0-34.0) pg MCHC (32.0-36.0) % RDW (11.6-17.2) % Plt Count (150-450) th/mm3 MPV (7.0-11.0) fL Neut % (Auto) (16.0-70.0) % Lymph % (Auto) (9.0-44.0) % [place] % (Auto) (0.0-8.0) % Eos % (Auto) (0.0-4.0) % Baso % (Auto) (0.0-2.0) % Neut # (Auto) (1.8-7.7) th/mm3 Lymph # (Auto) (1.0-4.8) th/mm3 [place] # (Auto) (0.0-0.9) th/mm3 Eos # (Auto) (0.0-0.4) th/mm3 Baso # (Auto) (0.0-0.2) th/mm3 WBC Differential Differential Comment PT (9.8-11.6) sec INR Ratio Sodium (136-145) meq/L Potassium (3.5-5.1) meq/L Chloride (98-107) meq/L Carbon Dioxide (21.0-32.0) meq/L Anion Gap (5-15) meq/L BUN (7-18) mg/dL Creatinine (0.50-1.00) mg/dL Estimated GFR (>89) mL/min POC Glucose (68-110) mg/dl Random Glucose (74-106) mg/dL Lactic Acid (0.4-2.0) mmol/L Calcium (8.5-10.1) mg/dL Total Bilirubin (0.2-1.0) mg/dL AST (15-37) U/L ALT (10-53) U/L Alkaline Phosphatase (45-117) U/L Total Creatine Kinase (26-192) U/L Troponin I (0.02-0.05) ng/mL Total Protein (6.4-8.2) g/dL Albumin (3.4-5.0) g/dL Lipase (73-393) U/L Urine Color Yellow (Yellw/Straw) Urine Clarity Clear (Clear) Urine pH 6.0 (5.0-8.5) Ur Specific [place] Less/equal 1.005 (1.002-1.035) Urine Protein Negative (Neg-Trace) mg/dL Urine Glucose (UA) Negative (Negative) mg/dL Urine Ketones Negative (Negative) mg/dL Urine Occult Blood Negative (Negative) Urine Nitrate Negative (Negative) Urine Bilirubin Negative (Negative) Urine Urobilinogen 0.2 (Less than 2) mg/dL Ur Leukocyte Esterase Small H (Negative) Urine RBC 0-3 (0-3) /hpf Urine WBC 6-8 H (0-5) /hpf Urine WBC Clumps (None) Ur Squamous Epith Cells 0-5 (0-5) /hpf Urine Bacteria Occasional H (None) /hpf Urine Mucus (Occasional) /lpf Micro UA Comment Culture not ind Ur Microscopic Review Microscopic reviewed Urine Culture Comments Culture not ind CSF Volume (1) 2.5 mL CSF Supernat Color (1) Clear (Clear) CSF Gross Blood (1) 1+ A (0) CSF Volume (2) 2.5 mL CSF Supernat Color (2) Clear (Clear) CSF Gross Blood (2) 1+ A (0) CSF Volume (3) 2.0 mL CSF Supernat Color (3) Clear (Clear) CSF Gross Blood (3) 1+ A (0) CSF Volume (4) 3.0 mL CSF Supernat Color (4) Clear (Clear) CSF Gross Blood (4) 1+ A (0) CSF WBC (4) 3 (0-10) /mm3 CSF RBC (4) 484 H (None) /mm3 CSF Neutrophils % 0 % CSF Lymphocytes % 100 % CSF Glucose 48 (40-80) mg/dL Imaging Data Radiologist's impression: Cervical Spine CT 06/11/18 14:08 CONCLUSION: 1. There continues to be diffuse moderate primary degenerative changes, disc degeneration and disc space narrowing throughout the entire cervical spine. 2. No significant changes compared to 2016. Head CT 06/11/18 14:08 CONCLUSION: 1. No focal or acute intracranial hemorrhage. 2. Interval development of bilateral subdural hygromas, left greater than right. 3. New Midline shift to the right by approximately 5 mm. . Abdomen/Pelvis CT 06/11/18 14:16 CONCLUSION: 1. Unremarkable and stable CT scan of the abdomen and pelvis compared to the prior examination. 2. No new or acute pathology. Lumbar Puncture Fluoroscopy 06/13/18 09:51 CONCLUSION: 1. Uncomplicated fluoroscopically guided lumbar puncture. Discharge Plan Discharge Disposition Patient Disposition: 30 Still Patient Discharge Details Discharge Comment: Follow-up with PMD for enlarging hygroma and shift of midline Physicians Team ED Provider: Anatoliy Mares Primary Care Provider: Sheldon Gross Attending Provider: Jo Felix Other Providers: Mae Dean ; Shorty Watson Status ED Status: Left Department Discharge Information Discharge Date/Time: 06/11/18 18:47
[2018-06-11] MEDS ORDERED: Sod Chloride 0.9% Inj 1,000 ML IV.SIG ONE (14:46)
[2018-06-11 15:04] LABS: Baso # (Auto) 0.1 th/mm3 (0.0-0.2); Eos % (Auto) 0.7 % (0.0-4.0); Hemoglobin 15.2 gm/dL (11.6-15.3); Lymph # (Auto) 1.2 th/mm3 (1.0-4.8); Lymph % (Auto) 16.8 % (9.0-44.0); Mean Corpuscular HGB Conc 34.6 % (32.0-36.0); Mean Corpuscular Hemoglobin 34.8 pg (27.0-34.0); Mean Corpuscular Volume 100.7 fL (80.0-100.0); Mean Platelet Volume 8.4 fL (7.0-11.0); Mono # (Auto) 0.6 th/mm3 (0.0-0.9); Mono % (Auto) 8.5 % (0.0-8.0); Platelet Count 162 th/mm3 (150-450); Red Blood Count 4.37 mil/mm3 (4.00-5.30); Red Cell Distribution Width 13.3 % (11.6-17.2); White Blood Count 6.9 th/mm3 (4.0-11.0)
[2018-06-11 15:12] LABS: Chloride 106 meq/L (98-107); Potassium 3.8 meq/L (3.5-5.1); Sodium 140 meq/L (136-145)
[2018-06-11 15:16] LABS: Albumin 3.8 g/dL (3.4-5.0); Anion Gap 11 meq/L (5-15); Blood Urea Nitrogen 22 mg/dL (7-18); Calcium 9.7 mg/dL (8.5-10.1); Carbon Dioxide 22.8 meq/L (21.0-32.0); Glucose,Random 91 mg/dL (74-106); Lipase 184 U/L (73-393)
[2018-06-11 15:19] LABS: Alanine Aminotransferase 45 U/L (10-53); Aspartate Aminotransferase 25 U/L (15-37); Glomerular Filtration Rate 43 mL/min (>89)
[2018-06-11 15:21] LABS: Total Protein 6.5 g/dL (6.4-8.2)
[2018-06-11 15:22] LABS: Alkaline Phosphatase 57 U/L (45-117)
--- NOTE | 2018-06-11 15:22 | CT ---
EXAM DATE: 06/11/2018 3:15 PM EDT AGE/SEX: 83 years / Female INDICATIONS: Dizziness. Bruising that's healing over right temporal region. CLINICAL DATA: This is the patient's initial encounter. Patient reports that signs and symptoms have been present for 1 day and indicates a pain score of 0/10. MEDICAL/SURGICAL HISTORY: Dementia. Lymphoma. Gastroesophageal reflux disease. Spinal fracture. Tubal ligation. RADIATION DOSE: 66.07 CTDI (mGy) COMPARISON: [facility], CT BRAIN W/O CONTRAST, 03/21/2018. . TECHNIQUE: CT of the head without contrast. Using automated exposure control and adjustment of the mA and/or kV according to patient size, radiation dose was kept as low as reasonably achievable to ob tain optimal diagnostic quality images. DICOM format image data is available electronically for revi ew and comparison. FINDINGS: Cerebrum: The ventricles are normal for age. There continues to be bilateral cortical atrophy. No e vidence of mass lesion, hemorrhage or acute infarction. Since the prior exam, there now appears to be bilateral subdural hygromas, left greater than right. There is approximately 1.2 cm of separation al jamie the left frontal temporal region. There is approximately 7 mm of separation along the right front al temporal region. There is now new midline shift to the right by approximately 5 mm. The subdural h ygromas appear to be new compared to the prior examination. Posterior Fossa: The cerebellum and brainstem are intact. The 4th ventricle is midline. The cerebe llopontine angle is unremarkable. Extracranial: The visualized portion of the orbits is intact. Skull: The calvaria is intact. No evidence of skull fracture. CONCLUSION: 1. No focal or acute intracranial hemorrhage. 2. Interval development of bilateral subdural hygromas, left greater than right. 3. New Midline shift to the right by approximately 5 mm. . Electronically signed by: Jose Luis Olvera MD 06/11/2018 3:21 PM EDT
[2018-06-11 15:23] LABS: Creatine Kinase 59 U/L (26-192)
--- NOTE | 2018-06-11 15:28 | CT ---
EXAM DATE: 06/11/2018 3:18 PM EDT AGE/SEX: 83 years / Female INDICATIONS: Abdominal pain. CLINICAL DATA: This is the patient's initial encounter. Patient reports that signs and symptoms have been present for 1 day and indicates a pain score of 1/10. MEDICAL/SURGICAL HISTORY: Dementia. Gastroesophageal reflux disease. Lymphoma. Spinal fractu re. Tubal ligation. RADIATION DOSE: 12.66 CTDI (mGy) COMPARISON: [facility], CT ABDOMEN & PELVIS W/O CONTRAST, 04/14/2018. . TECHNIQUE: Multiple contiguous axial images were obtained through the abdomen. Images were obtained using multiple row detector helical technique. Using automated exposure control and adjustment of the mA and/or kV according to patient size, radiation dose was kept as low as reasonably achievable to o btain optimal diagnostic quality images. DICOM format image data is available electronically for rev iew and comparison. Lack of IV contrast limits the diagnosis for certain organ pathology. FINDINGS: Lower Lungs: The visualized lower lungs are clear. Liver: The liver has a homogeneous density without space-occupying lesion. There is no dilation of th e biliary tree. Gallbladder unremarkable. Spleen: Homogeneous density without enlargement. Pancreas: Unremarkable without mass or calcification. Kidneys: Normal in size and shape. No evidence of mass or hydronephrosis. No calcified renal stones. Adrenal Glands: Unremarkable. Aorta: Diffuse atherosclerotic changes. No aneurysmal dilatation. No change. Bowel/Mesentery: The bowel loops are grossly unremarkable. The cecum and sigmoid colon have a normal configuration. The appendix is unremarkable. No inflammatory changes. There is stool throughout the colon. No free fluid or loculated fluid collections. Abdominal Wall: Intact. Retroperitoneum: No evidence of adenopathy in the retrocrural, para-aortic, or deep pelvic regions. Bladder: Contours are smooth. Reproductive Organs: No abnormal masses or calcifications seen. Inguinal: The inguinal region is unremarkable without evidence of adenopathy. Bony Structures: Diffuse bony degenerative changes. No new or significant changes compared to the prior examination. CONCLUSION: 1. Unremarkable and stable CT scan of the abdomen and pelvis compared to the prior examination. 2. No new or acute pathology. Electronically signed by: Jose Luis Olvera MD 06/11/2018 3:27 PM EDT
--- NOTE | 2018-06-11 15:33 | CT ---
EXAM DATE: 06/11/2018 3:25 PM EDT AGE/SEX: 83 years / Female INDICATIONS: Cervalgia. CLINICAL DATA: This is the patient's initial encounter. Patient reports that signs and symptoms have been present for 1 day and indicates a pain score of 7/10. MEDICAL/SURGICAL HISTORY: Dementia. Gastroesophageal reflux disease. Lymphoma. Spinal fractu re. Tubal ligation. RADIATION DOSE: 26.26 CTDI (mGy) COMPARISON: [facility], CT CERVICAL SPINE W/O CONTRAST, 01/29/2016. . TECHNIQUE: Contiguous axial images were obtained using helical multirow detector technique. The vol umetric data was post-processed with multiplanar reconstruction in oblique axial, sagittal, and coron al planes. Using automated exposure control and adjustment of the mA and/or kV according to patient s ize, radiation dose was kept as low as reasonably achievable to obtain optimal diagnostic quality troy ges. DICOM format image data is available electronically for review and comparison. FINDINGS: Vertebrae: There is moderate diffuse primary bony degenerative changes, disc degeneration and disc s pace narrowing throughout the entire cervical spine. The bony structures are grossly intact. These fi ndings are not significantly changed compared to the prior examination from 2015. Alignment: Normal. No subluxation. C2-3: The bony spinal canal is normal in size. No evidence of disc bulge or herniation. The neural foramina are bilaterally patent. C3-4: Broad-based bulging with narrowing of the neural foramina bilaterally. Bilateral facet arthrit is, right greater than left. C4-5: Left paracentral disc protrusion with disc osteophyte complex. There is narrowing of the neura l foramina bilaterally with bilateral facet arthritis. No significant change. C5-6: Broad-based bulging with disc osteophyte complex. There is narrowing of the neural foramina bi laterally. No significant changes. C6-7: Central and left paracentral disc osteophyte complexes. There is some mild narrowing of the le ft neural foramina. The right neural foramina appears patent. No significant changes. C7-T1: The bony spinal canal is normal in size. No evidence of disc bulge or herniation. There is s ome narrowing of the right neural foramina from facet arthritis. The left neural foramina appears pat ent. No significant changes are seen compared to the prior examination. CONCLUSION: 1. There continues to be diffuse moderate primary degenerative changes, disc degeneration and disc s pace narrowing throughout the entire cervical spine. 2. No significant changes compared to 2016. Electronically signed by: Jose Luis Olvera MD 06/11/2018 3:32 PM EDT
[2018-06-11] MEDS ORDERED: Bisacodyl 10 MG Supp RECTAL PRN (17:26)
[2018-06-11] MEDS: Sod Chloride 0.9% Inj 1,000 ML IV.CONT SCH ×3 (17:30→23:09)
[2018-06-12] MEDS: Sod Chloride 0.9% Inj 1,000 ML IV.CONT SCH ×4 (02:37→12:34)
[2018-06-12 04:51] LABS: Bilirubin,Urine Negative (Negative); Clarity,Urine Clear (Clear); Color,Urine Yellow (Yellw/Straw); Glucose,Urine (UA) Negative (Negative); Leukocyte Esterase,Urine Small (Negative); Nitrite,Urine Negative (Negative); PH,Urine 5.5 (5.0-8.5); Specific Gravity,Urine 1.025 (1.002-1.035); Urobilinogen,Urine 0.2 mg/dL (Less than 2)
[2018-06-12 05:11] LABS: Mucus,Urine Few /lpf (Occasional); RBC,Urine 0-3 /hpf (0-3); Squamous Epithelial Cell,Urine 0-5 /hpf (0-5)
--- NOTE | 2018-06-12 09:26 | P.HP ---
History of Present Illness Service: Hospitalist Primary Care Physician: Sheldon Gross MD Chief Complaint: Headache, encephalopathy, recent shingles History of Present Illness: Ms. Flores is a pleasant 83-year-old female with a history of dementia , follicular lymphoma who was admitted to the hospital on 06/11/2018 due to worsening mental condition after she fell recently. History is mostly obtained from patient's daughter at bedside. Apparently approximately 11 weeks ago patient complained of significant headache and dizziness. About 8 weeks ago she started having pain in her right flank area as well as the right side of the abdominal wall which eventually developed into typical shingles rash. She was treated by her primary care physician. Even though patient has dementia, she was living at an assisted living facility by herself before these symptoms started. Per daughter, her condition has declined quite significantly. No chest pain, shortness of breath, fever or chills. No changes in bowel or bladder habits. She was recently treated for urinary tract infection as well. At the time of this interview, patient wakes up on verbal commands. She is pleasant but remains confused about where she is or what month/year. Family history: No family history of Alzheimer's or Parkinson's. Dad had heart disease and mom had breast cancer. Social history: Patient does not use tobacco, alcohol, illicit drugs. Review of Systems All other systems reviewed negative except as stated in HPI PMFSH - History History Provided By: Patient, Family Member - Medical History Medical History: Medical History (Last Reviewed 06/11/18 @ 14:08 by Benitez Martinez) Arthritis Depression Dyslipidemia GERD (gastroesophageal reflux disease) History of dementia History of follicular lymphoma History of spinal fracture History of urinary tract infection Insomnia - Surgical History Surgical History: Surgical History (Last Reviewed 06/11/18 @ 14:08 by Benitez Martinez) History of tubal ligation - Tobacco History Second Hand Smoke Exposure: No Tobacco Use In Past 30 Days: No Smoking Status: Former smoker - Alcohol History How Often Do You Have a Drink Containing Alcohol: Never - Substance Use History Substance History: No History of Abuse - Travel History Recent Travel in the [place] Within the Last 8 Weeks: No Recent Travel Out of the Country Within the Last 8 Weeks: No - Immunization History Tetanus Immunization: Unsure Hx Influenza Vaccine This Season: Yes Medications and Allergies Active Medications: Active Medications Acetaminophen (Tylenol) 650 mg PO Q4H PRN PRN Reason: Headache, fever, pain 1-5 Al Hydroxide/Mg Hydroxide (Milk Of Magnesia Liq) 30 ml PO Q12H PRN PRN Reason: Mild Constipation Bisacodyl (Dulcolax Supp) 10 mg RECTAL DAILY PRN PRN Reason: SEVERE CONSITIPATION Sodium Chloride (Ns Inj) 1,000 mls @ 100 mls/hr IV.CONT .Q10H GISEL Last Admin: 06/12/18 05:34 Dose: 100 mls/hr Lactulose (Lactulose Liq) 30 ml PO DAILY PRN PRN Reason: SEVERE CONSITIPATION Ondansetron HCl (Zofran Inj) 4 mg IV.PUSH Q6H PRN PRN Reason: NAUSEA OR VOMITING Sennosides (Senokot) 17.2 mg PO Q12H PRN PRN Reason: Moderate Constipation Sodium Chloride (Ns Flush) 2 ml IV.FLUSH PRN PRN PRN Reason: FLUSH AFTER USING IV ACCESS Allergies Allergy/AdvReac Type Severity Reaction Status Date / Time cefadroxil Allergy Severe Swelling Verified 06/11/18 13:11 of Lip/Tongue/Throat erythromycin base Allergy Severe Swelling Verified 06/11/18 13:11 of Lip/Tongue/Throat penicillin G Allergy Severe Swelling Verified 06/11/18 13:11 of Lip/Tongue/Throat sulfamethoxazole AdvReac Intermediate Dizziness Verified 06/11/18 13:11 [From Bactrim] trimethoprim [From Bactrim] AdvReac Intermediate Dizziness Verified 06/11/18 13: 11 Home Medications Medication Instructions Recorded Confirmed Type Macrobid 100 mg PO BID 04/14/18 06/11/18 History ascorbic acid (vitamin C) 1,000 mg CHEW DAILY 04/14/18 06/11/18 History cyanocobalamin (vitamin B-12) 3,000 mcg SUBLINGUAL DAILY 04/14/18 06/11/18 History escitalopram oxalate 10 mg PO DAILY 04/14/18 06/11/18 History hydrocodone-acetaminophen 10 mg PO Q4H PRN 04/14/18 06/11/18 History lorazepam 0.5 mg PO BID PRN 04/14/18 06/11/18 History zaleplon 1 tab PO HS 04/14/18 06/11/18 History Exam Vital signs: Vital Signs 06/11/18 13:05 06/11/18 13:59 06/11/18 16:27 Temperature 98.2 F Pulse Rate 62 54 L 55 L Respiratory Rate 18 17 Blood Pressure 127/65 151/73 H Pulse Oximetry 98 98 06/11/18 16:46 06/11/18 18:00 06/12/18 00:00 Temperature 96.9 F L Pulse Rate 55 L 68 65 Respiratory Rate 17 16 Blood Pressure 131/54 L 131/54 L 129/75 Pulse Oximetry 99 98 98 Intake & Output 06/11/18 06/12/18 06/12/18 18:59 06:59 18:59 Intake Total 1600 / 1600 1400 / 1400 Output Total 600 / 600 Balance 1600 / 1600 800 / 800 Weight 72.9 kg Intake: IV 1600 / 1600 1400 / 1400 NS Inj 1,000 ML @ 100 mls/hr IV 600 / 600 1400 / 1400 .CONT .Q10H GISEL Rx#:[id number] NS Inj 1,000 ML @ Wide Open IV. 1000 / 1000 SIG BOLUS ONE Rx#:[id number] Output: Urine 600 / 600 Other: # Voids 2 Narrative: GENERAL: This is a well-nourished, well-developed patient, in no apparent distress. Pleasant but oriented x person only. SKIN: No rashes, ecchymoses or lesions. Warm and dry. HEAD: Atraumatic. Normocephalic. No temporal or scalp tenderness. EYES: Pupils equal round and reactive. No injection or drainage. ENT: Nose without bleeding, purulent drainage or septal hematoma. Airway patent. NECK: Trachea midline. No lymphadenopathy. Supple, nontender, no meningeal signs. CARDIOVASCULAR: Regular rate and rhythm without murmurs, gallops, or rubs. No JVD. RESPIRATORY: Clear to auscultation. Breath sounds equal bilaterally. No wheezes , rales, or rhonchi. GASTROINTESTINAL: Abdomen soft, non-tender, nondistended. No guarding. MUSCULOSKELETAL: Extremities without clubbing, cyanosis, or edema. NEUROLOGICAL: Somewhat drowsy but wakes up on verbal commands. Cranial nerves II through XII intact. No focal neurological deficits. Normal speech. Results - Labs CBC & Chem 7: 06/11/18 14:48 06/11/18 14:48 Labs: Laboratory Results - last 24 hr 06/11/18 06/11/18 06/11/18 14:14 14:45 14:48 CBC w Diff Auto diff final WBC 6.9 RBC 4.37 Hgb 15.2 Hct 44.0 MCV 100.7 H MCH 34.8 H MCHC 34.6 RDW 13.3 Plt Count 162 MPV 8.4 Neut % (Auto) 73.0 H Lymph % (Auto) 16.8 [place] % (Auto) 8.5 H Eos % (Auto) 0.7 Baso % (Auto) 1.0 Neut # (Auto) 5.0 Lymph # (Auto) 1.2 [place] # (Auto) 0.6 Eos # (Auto) 0.0 Baso # (Auto) 0.1 WBC Differential . Differential Comment . Sodium Potassium Chloride Carbon Dioxide Anion Gap BUN Creatinine Estimated GFR POC Glucose 91 Random Glucose Lactic Acid 1.5 Calcium Total Bilirubin AST ALT Alkaline Phosphatase Total Creatine Kinase Troponin I Total Protein Albumin Lipase Urine Color Urine Clarity Urine pH Ur Specific [place] Urine Protein Urine Glucose (UA) Urine Ketones Urine Occult Blood Urine Nitrate Urine Bilirubin Urine Urobilinogen Ur Leukocyte Esterase Urine RBC Urine WBC Urine WBC Clumps Ur Squamous Epith Cells Urine Mucus Micro UA Comment Ur Microscopic Review Urine Culture Comments 06/11/18 06/12/18 14:48 04:20 CBC w Diff WBC RBC Hgb Hct MCV MCH MCHC RDW Plt Count MPV Neut % (Auto) Lymph % (Auto) [place] % (Auto) Eos % (Auto) Baso % (Auto) Neut # (Auto) Lymph # (Auto) [place] # (Auto) Eos # (Auto) Baso # (Auto) WBC Differential Differential Comment Sodium 140 Potassium 3.8 Chloride 106 Carbon Dioxide 22.8 Anion Gap 11 BUN 22 H Creatinine 1.20 H Estimated GFR 43 L POC Glucose Random Glucose 91 Lactic Acid Calcium 9.7 Total Bilirubin 0.9 AST 25 ALT 45 Alkaline Phosphatase 57 Total Creatine Kinase 59 Troponin I Less than 0.02 L Total Protein 6.5 Albumin 3.8 Lipase 184 Urine Color Yellow Urine Clarity Clear Urine pH 5.5 Ur Specific [place] 1.025 Urine Protein Negative Urine Glucose (UA) Negative Urine Ketones 15 H Urine Occult Blood Negative Urine Nitrate Negative Urine Bilirubin Negative Urine Urobilinogen 0.2 Ur Leukocyte Esterase Small H Urine RBC 0-3 Urine WBC 9-20 H Urine WBC Clumps Few H Ur Squamous Epith Cells 0-5 Urine Mucus Few H Micro UA Comment Culture indicated Ur Microscopic Review Microscopic reviewed Urine Culture Comments Culture indicated - Imaging Impressions Cervical Spine CT 06/11/18 14:08 CONCLUSION: 1. There continues to be diffuse moderate primary degenerative changes, disc degeneration and disc space narrowing throughout the entire cervical spine. 2. No significant changes compared to 2016. Head CT 06/11/18 14:08 CONCLUSION: 1. No focal or acute intracranial hemorrhage. 2. Interval development of bilateral subdural hygromas, left greater than right. 3. New Midline shift to the right by approximately 5 mm. . Abdomen/Pelvis CT 06/11/18 14:16 CONCLUSION: 1. Unremarkable and stable CT scan of the abdomen and pelvis compared to the prior examination. 2. No new or acute pathology. Caprini VTE Risk Assessment Caprini VTE Risk Assessment: No/Low Risk (score <= 1) Caprini Risk Assessment Model: Point Value = 1 Point Value = 2 Point Value = 3 Point Value = 5 Age 41-60 Minor surgery BMI > 25 kg/m2 Swollen legs Varicose veins or History of unexplained or recurrent spontaneous Oral contraceptives or hormone replacement Sepsis (< 1 month) Serious lung disease, including pneumonia (< 1 month) Abnormal pulmonary function Acute myocardial infarction Congestive heart failure (< 1 month) History of inflammatory bowel disease Medical patient at bed rest Age 61-74 Arthroscopic surgery Major open surgery (> 45 min) Laparoscopic surgery (> 45 min) Malignancy Confined to bed (> 72 hours) Immobilizing plaster cast Central venous access Age >= 75 History of VTE Family history of VTE Factor V Leiden Prothrombin [id number] Lupus anticoagulant Anticardiolipin antibodies Elevated serum homocysteine Heparin-induced thrombocytopenia Other congenital or acquired thrombophilia Stroke (< 1 month) Elective arthroplasty Hip, pelvis, or leg fracture Acute spinal cord injury (< 1 month) Prophylaxis Regimen: Total Risk Factor Score Risk Level Prophylaxis Regimen 0-1 Low Early ambulation 2 Moderate Order ONE of the following: *Sequential Compression Device (SCD) *Heparin 5000 units SQ BID 3-4 Higher Order ONE of the following medications: *Heparin 5000 units SQ TID *Enoxaparin/Lovenox 40 mg SQ daily (WT < 150 kg, CrCl > 30 mL/min) *Enoxaparin/Lovenox 30 mg SQ daily (WT < 150 kg, CrCl > 10-29 mL/min) *Enoxaparin/Lovenox 30 mg SQ BID (WT < 150 kg, CrCl > 30 mL/min) AND/OR *Sequential Compression Device (SCD) 5 or more Highest Order ONE of the following medications: *Heparin 5000 units SQ TID (Preferred with Epidurals) *Enoxaparin/Lovenox 40 mg SQ daily (WT < 150 kg, CrCl > 30 mL/min) *Enoxaparin/Lovenox 30 mg SQ daily (WT < 150 kg, CrCl > 10-29 mL/min) *Enoxaparin/Lovenox 30 mg SQ BID (WT < 150 kg, CrCl > 30 mL/min) AND *Sequential Compression Device (SCD) Assessment and Plan - Plan Ms. Delgado is a pleasant 83-year-old female with a history of dementia, follicular lymphoma and recently diagnosed shingles on her right side of the abdominal wall who presents to the emergency department due to worsening mental condition. Her daughter, compared to patient's baseline 11-12 weeks ago she has declined quite a bit. She was treated for shingles as well as UTI in the outpatient setting. 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 I encouraged for an outpatient evaluation by neurology. -Patient's headache and dizziness 3 weeks prior to onset of shingles concerning for any viral encephalopathy. -Although may be a low yield, I believe a lumbar puncture to rule out any viral etiology would be important. -Discussed with infectious disease who will evaluate patient and agreed with LP study. CKD stage III - Creatinine 1.2. Baseline appears to be around 1.3. - Avoid Nephrotoxins. Orthostatic hypotension - Supine BP 120/79, sitting 145/77 and standing 121/65. - Continue IV fluid, may repeat orthostatic tomorrow. Recent UTI - Urinalysis done and shows WBC 9-20. Will follow cultures. History of follicular lymphoma -no acute concerns. Full code. SCDs.
--- NOTE | 2018-06-12 09:46 | ECG ---
Date Performed: 06/11/2018 Time Performed: 15:39:45 PTAGE: 83 years EKG: SINUS BRADYCARDIA LOW QRS VOLTAGE IN PRECORDIAL LEADS NONSPECIFIC T-WAVE ABNORMALITY BORDER LINE ECG Since the PREVIOUS TRACING , no significant change noted PREVIOUS TRACIN03/21/2018 19.40 DOCTOR: Lukas Toro Interpretating Date/Time 06/12/2018 09:44:23
[2018-06-12 12:19] LABS: INR 1.1 Ratio; Prothrombin Time 11.1 sec (9.8-11.6)
[2018-06-12] MEDS: Acetaminophen 325 MG Tablet PO PRN (12:33)
[2018-06-12] MEDS: Gabapentin 300 MG Capsule PO SCH ×2 (12:33→18:00)
--- NOTE | 2018-06-12 15:16 | P.CONID ---
History of Present Illness Service: Infectios Disease Consult date: 06/12/18 Requesting Physician: Jo Felix Reason for Consult: UTI, Recent shingles, encephalopathy Primary Care Provider: Sheldon Gross MD Family Provider: Sheldon Gross MD Chief Complaint: Headache, encephalopathy, recent shingles PMFSH - History History Provided By: Patient, Family Member - Medical History Medical History: Medical History (Last Reviewed 06/11/18 @ 14:08 by Benitez Martinez) Arthritis Depression Dyslipidemia GERD (gastroesophageal reflux disease) History of dementia History of follicular lymphoma History of spinal fracture History of urinary tract infection Insomnia - Surgical History Surgical History: Surgical History (Last Reviewed 06/11/18 @ 14:08 by Benitez Martinez) History of tubal ligation - Tobacco History Second Hand Smoke Exposure: No Tobacco Use In Past 30 Days: No Smoking Status: Former smoker - Alcohol History How Often Do You Have a Drink Containing Alcohol: Never - Substance Use History Substance History: No History of Abuse - Travel History Recent Travel in the [place] Within the Last 8 Weeks: No Recent Travel Out of the Country Within the Last 8 Weeks: No - Immunization History Tetanus Immunization: Unsure Hx Influenza Vaccine This Season: Yes Medications and Allergies Active Medications: Active Medications Acetaminophen (Tylenol) 650 mg PO Q4H PRN PRN Reason: Headache, fever, pain 1-5 Last Admin: 06/12/18 12:33 Dose: 650 mg Al Hydroxide/Mg Hydroxide (Milk Of Magnesia Liq) 30 ml PO Q12H PRN PRN Reason: Mild Constipation Bisacodyl (Dulcolax Supp) 10 mg RECTAL DAILY PRN PRN Reason: SEVERE CONSITIPATION Gabapentin (Neurontin) 300 mg PO TID [facility] Last Admin: 06/12/18 12:33 Dose: 300 mg Sodium Chloride (Ns Inj) 1,000 mls @ 100 mls/hr IV.CONT .Q10H GISEL Last Admin: 06/12/18 12:34 Dose: 100 mls/hr Lactulose (Lactulose Liq) 30 ml PO DAILY PRN PRN Reason: SEVERE CONSITIPATION Ondansetron HCl (Zofran Inj) 4 mg IV.PUSH Q6H PRN PRN Reason: NAUSEA OR VOMITING Last Admin: 06/12/18 12:33 Dose: 4 mg Sennosides (Senokot) 17.2 mg PO Q12H PRN PRN Reason: Moderate Constipation Sodium Chloride (Ns Flush) 2 ml IV.FLUSH PRN PRN PRN Reason: FLUSH AFTER USING IV ACCESS Allergies Allergy/AdvReac Type Severity Reaction Status Date / Time cefadroxil Allergy Severe Swelling Verified 06/11/18 13:11 of Lip/Tongue/Throat erythromycin base Allergy Severe Swelling Verified 06/11/18 13:11 of Lip/Tongue/Throat penicillin G Allergy Severe Swelling Verified 06/11/18 13:11 of Lip/Tongue/Throat sulfamethoxazole AdvReac Intermediate Dizziness Verified 06/11/18 13:11 [From Bactrim] trimethoprim [From Bactrim] AdvReac Intermediate Dizziness Verified 06/11/18 13: 11 Home Medications Medication Instructions Recorded Confirmed Type Macrobid 100 mg PO BID 04/14/18 06/11/18 History ascorbic acid (vitamin C) 1,000 mg CHEW DAILY 04/14/18 06/11/18 History cyanocobalamin (vitamin B-12) 3,000 mcg SUBLINGUAL DAILY 04/14/18 06/11/18 History escitalopram oxalate 10 mg PO DAILY 04/14/18 06/11/18 History hydrocodone-acetaminophen 10 mg PO Q4H PRN 04/14/18 06/11/18 History lorazepam 0.5 mg PO BID PRN 04/14/18 06/11/18 History zaleplon 1 tab PO HS 04/14/18 06/11/18 History Exam Vital signs: Vital Signs 06/11/18 16:27 06/11/18 16:46 06/11/18 18:00 Temperature Pulse Rate 55 L 55 L 68 Respiratory Rate 17 Blood Pressure 131/54 L 131/54 L Pulse Oximetry 99 98 06/12/18 00:00 06/12/18 08:00 06/12/18 12:00 Temperature 96.9 F L 98.9 F 97.0 F L Pulse Rate 65 68 60 Respiratory Rate 16 18 18 Blood Pressure 129/75 156/66 H 133/63 Pulse Oximetry 98 96 97 Intake & Output 06/11/18 06/12/18 06/12/18 18:59 06:59 18:59 Intake Total 1600 / 1600 1400 / 1400 1000 / 1000 Output Total 600 / 600 Balance 1600 / 1600 800 / 800 1000 / 1000 Weight 72.9 kg Intake: IV 1600 / 1600 1400 / 1400 1000 / 1000 NS Inj 1,000 ML @ 100 mls/hr IV 600 / 600 1400 / 1400 1000 / 1000 .CONT .Q10H GISEL Rx#:[id number] NS Inj 1,000 ML @ Wide Open IV. 1000 / 1000 SIG BOLUS ONE Rx#:[id number] Output: Urine 600 / 600 Other: # Voids 2 Results - Labs CBC & Chem 7: 06/11/18 14:48 06/11/18 14:48 Labs: Laboratory Results - last 24 hr 06/11/18 06/11/18 06/12/18 14:45 14:48 04:20 PT INR Carbon Dioxide 22.8 Anion Gap 11 BUN 22 H Creatinine 1.20 H Estimated GFR 43 L Random Glucose 91 Lactic Acid 1.5 Calcium 9.7 Total Bilirubin 0.9 AST 25 ALT 45 Alkaline Phosphatase 57 Total Creatine Kinase 59 Troponin I Less than 0.02 L Total Protein 6.5 Albumin 3.8 Lipase 184 Urine Color Yellow Urine Clarity Clear Urine pH 5.5 Ur Specific [place] 1.025 Urine Protein Negative Urine Glucose (UA) Negative Urine Ketones 15 H Urine Occult Blood Negative Urine Nitrate Negative Urine Bilirubin Negative Urine Urobilinogen 0.2 Ur Leukocyte Esterase Small H Urine RBC 0-3 Urine WBC 9-20 H Urine WBC Clumps Few H Ur Squamous Epith Cells 0-5 Urine Mucus Few H Micro UA Comment Culture indicated Ur Microscopic Review Microscopic reviewed Urine Culture Comments Culture indicated 06/12/18 11:30 PT 11.1 INR 1.1 Carbon Dioxide Anion Gap BUN Creatinine Estimated GFR Random Glucose Lactic Acid Calcium Total Bilirubin AST ALT Alkaline Phosphatase Total Creatine Kinase Troponin I Total Protein Albumin Lipase Urine Color Urine Clarity Urine pH Ur Specific [place] Urine Protein Urine Glucose (UA) Urine Ketones Urine Occult Blood Urine Nitrate Urine Bilirubin Urine Urobilinogen Ur Leukocyte Esterase Urine RBC Urine WBC Urine WBC Clumps Ur Squamous Epith Cells Urine Mucus Micro UA Comment Ur Microscopic Review Urine Culture Comments - Imaging Impressions Cervical Spine CT 06/11/18 14:08 CONCLUSION: 1. There continues to be diffuse moderate primary degenerative changes, disc degeneration and disc space narrowing throughout the entire cervical spine. 2. No significant changes compared to 2016. Head CT 06/11/18 14:08 CONCLUSION: 1. No focal or acute intracranial hemorrhage. 2. Interval development of bilateral subdural hygromas, left greater than right. 3. New Midline shift to the right by approximately 5 mm. . Abdomen/Pelvis CT 06/11/18 14:16 CONCLUSION: 1. Unremarkable and stable CT scan of the abdomen and pelvis compared to the prior examination. 2. No new or acute pathology. Assessment and Plan (1) UTI (urinary tract infection) Status: Acute Code(s): N39.0 - Urinary tract infection, site not specified (2) H/O herpes zoster Status: Acute Code(s): Z86.19 - Personal history of other infectious and parasitic diseases (3) Encephalopathy Status: Acute Code(s): G93.40 - Encephalopathy, unspecified - Plan 1. Follow Urine culture 2. Cipro 200 mg IV q 12hrs 3. Check VZV IgM 4. If VZV IgM positive- may need to consider further work up
[2018-06-12] MEDS: Ciprofloxacin 400 MG/200 ML 400 MG/200 ML PIGGYBACK IV.SIG SCH (18:00)
[2018-06-13] MEDS: Sod Chloride 0.9% Inj 1,000 ML IV.CONT SCH ×3 (02:15→19:40)
[2018-06-13] MEDS: Ciprofloxacin 400 MG/200 ML 400 MG/200 ML PIGGYBACK IV.SIG SCH (06:24)
[2018-06-13] MEDS: Gabapentin 300 MG Capsule PO SCH ×3 (08:32→18:30)
[2018-06-13] MEDS ORDERED: Ciprofloxacin 200 MG/100 ML 200 MG/100 ML PIGGYBACK IV.SIG SCH ×2 (10:00→18:00)
--- NOTE | 2018-06-13 10:50 | P.PN ---
Subjective Interval history: Follow up for dementia, UTI, worsened mental status. Patient is resting in bed, no acute concerns. No fever, chills. She remains pleasant but confused. She could not tell me her daughter's name or even her last name initially. Physical Exam Vital signs: Vital Signs 06/12/18 12:00 06/12/18 16:00 06/12/18 20:00 Temperature 97.0 F L 96.2 F L 96.1 F L Pulse Rate 60 60 62 Respiratory Rate 18 18 16 Blood Pressure 133/63 131/66 137/66 Pulse Oximetry 97 96 96 06/13/18 08:00 Temperature 96.4 F L Pulse Rate 64 Respiratory Rate 18 Blood Pressure 145/70 H Pulse Oximetry 98 Intake & Output 06/12/18 06/13/18 06/13/18 18:59 06:59 18:59 Intake Total 1120 / 1120 1625 / 1625 200 / 200 Balance 1120 / 1120 1625 / 1625 200 / 200 Weight 73.5 kg Intake: IV 1000 / 1000 1200 / 1200 200 / 200 NS Inj 1,000 ML @ 100 mls/hr IV 1000 / 1000 1000 / 1000 .CONT .Q10H GISEL Rx#:[id number] Cipro 400 MG/200 ML Inj 400 mg 200 / 200 200 / 200 In 200 ml @ 200 mls/hr IV.SIG Q12H GISEL Rx#:[id number] Oral 120 / 120 425 / 425 Other: # Voids 4 # Bowel Movements 2 Narrative: GENERAL: Alert, Oriented to person. SKIN: Warm and dry. HEAD: Normocephalic. EYES: No scleral icterus. No injection or drainage. NECK: Supple, trachea midline. No JVD or lymphadenopathy. CARDIOVASCULAR: Regular rate and rhythm without murmurs, gallops, or rubs. RESPIRATORY: Breath sounds equal bilaterally. No accessory muscle use. GASTROINTESTINAL: Abdomen soft, non-tender, nondistended. MUSCULOSKELETAL: No cyanosis, or edema. BACK: Nontender without obvious deformity. No CVA tenderness. Results - Labs CBC & Chem 7: 06/11/18 14:48 06/11/18 14:48 Laboratory Results - last 24 hr 06/12/18 11:30 PT 11.1 INR 1.1 Microbiology 06/12/18 04:20 Clean Catch Urine Urine Culture - Final <10,000 cfu/mL mixed lazarus - no further workup - Imaging Cervical Spine CT 06/11/18 14:08 CONCLUSION: 1. There continues to be diffuse moderate primary degenerative changes, disc degeneration and disc space narrowing throughout the entire cervical spine. 2. No significant changes compared to 2016. Head CT 06/11/18 14:08 CONCLUSION: 1. No focal or acute intracranial hemorrhage. 2. Interval development of bilateral subdural hygromas, left greater than right. 3. New Midline shift to the right by approximately 5 mm. . Abdomen/Pelvis CT 06/11/18 14:16 CONCLUSION: 1. Unremarkable and stable CT scan of the abdomen and pelvis compared to the prior examination. 2. No new or acute pathology. Assessment and Plan - Plan Ms. Delgado is a pleasant 83-year-old female with a history of dementia, follicular lymphoma and recently diagnosed shingles on her right side of the abdominal wall who presents to the emergency department due to worsening mental condition. Her daughter, compared to patient's baseline 11-12 weeks ago she has declined quite a bit. She was treated for shingles as well as UTI in the outpatient setting. 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 I encouraged for an outpatient evaluation by neurology. -Patient's headache and dizziness 3 weeks prior to onset of shingles concerning for any viral encephalopathy. -Although may be a low yield, I believe a lumbar puncture to rule out any viral etiology would be important. -LP to be done today by IR. -Discussed with infectious disease on 06/12/18 who will evaluate patient and agreed with LP study. -Serology for VZV IGM ab pending. We will also follow CSF studies once LP is done. CKD stage III - Creatinine 1.2. Baseline appears to be around 1.3. - Avoid Nephrotoxins. Recent UTI - Cx is negative. We will continue Cipro 200mg BID for suspected partially treated UTI. History of follicular lymphoma -no acute concerns. Full code. SCDs.
--- NOTE | 2018-06-13 12:15 | P.RAD ---
Post Procedure Progress Note - Procedure Information Procedure Date: 06/13/18 Supervising Radiologist: Ismael Kraus MD Estimated blood loss (mL): 0 Anesthesia: Local - Plan of Activity Patient to Unit: Nursing Unit Patient Condition: Good See PACS Report for procedural detail/treatment.
[2018-06-13 13:30] LABS: Lymphocytes, CSF 100 %; Neutrophils,CSF 0 %; RBC on Tube 4 484 /mm3
[2018-06-13] MEDS: Ciprofloxacin 250 MG Tablet PO SCH ×2 (19:41→21:24)
[2018-06-13] MEDS: Acetaminophen 325 MG Tablet PO PRN (20:03)
[2018-06-14] MEDS: Sod Chloride 0.9% Inj 1,000 ML IV.CONT SCH ×3 (05:01→22:23)
[2018-06-14] MEDS: Acetaminophen 325 MG Tablet PO PRN (08:23)
[2018-06-14] MEDS: Gabapentin 300 MG Capsule PO SCH ×3 (08:23→19:59)
[2018-06-14] MEDS: Ciprofloxacin 250 MG Tablet PO SCH ×2 (08:24→19:59)
--- NOTE | 2018-06-14 11:20 | IR ---
EXAM DATE: 06/13/2018 12:41 PM EDT AGE/SEX: 83 years / Female INDICATIONS: Patient in need of lumbar puncture to rule out Encephalopathy. CLINICAL DATA: This is the patient's initial encounter. Patient reports that signs and symptoms have been present for 2 days and indicates a pain score of 0/10. MEDICAL/SURGICAL HISTORY: Arthritis. Depression, Dyslipidemia, GERD, Dementia, Follicular lymph angelina, Spinal fracture, UTI, Insomnia, Tubal ligation. COMPARISON: [facility], CT CERVICAL SPINE W/O CONTRAST, 06/11/2018. . FLUORO TIME (min): 0.3 IMAGE SERIES: 1 ACCESS SITE: L3-4 LUMBAR PUNCTURE TIME: 1210 hours FLUID: Total volume of 11 cc of clear fluid was removed. Fluid was sent to lab for ordered studies. . . PROCEDURE: 1. Fluoroscopic guided lumbar puncture. The risks, benefits and alternatives to the procedure were explained and verbal and written consent w as obtained. The site was prepped in sterile fashion. Full sterile technique was used, including ca p, mask, sterile gloves and gown and a large sterile sheet. Hand hygiene and 2% chlorhexidine and/or betadine/alcohol prep was utilized per protocol for cutaneous antisepsis. The skin and subcutaneous tissues were infiltrated with local anesthetic solution. With fluoroscopic guidance the lumbar thecal sac was punctured at the level above. The fluid describ ed above was removed without difficulty. The patient tolerated the procedure well and there were no complications. CONCLUSION: 1. Uncomplicated fluoroscopically guided lumbar puncture. Electronically signed by: Ismael Kraus MD 06/14/2018 11:18 AM EDT
[2018-06-15] MEDS: Sod Chloride 0.9% Inj 1,000 ML IV.CONT SCH ×3 (00:34→22:33)
[2018-06-15] MEDS: Ciprofloxacin 250 MG Tablet PO SCH ×2 (09:43→20:26)
--- NOTE | 2018-06-15 11:00 | P.PN ---
Subjective Interval history: Late entry for 06/14/2018 Follow up for dementia, UTI, worsened mental status. Patient is doing well. However, she remains pleasant but confused. No fever, chills. Physical Exam Vital signs: Vital Signs 06/14/18 16:59 06/14/18 20:00 06/15/18 00:00 Temperature 97.5 F L 97.7 F 97.8 F Pulse Rate 62 64 68 Respiratory Rate 18 16 16 Blood Pressure 135/75 101/57 L 115/62 Pulse Oximetry 95 94 L 94 L Intake & Output 06/14/18 06/15/18 06/15/18 18:59 06:59 18:59 Intake Total 480 / 480 1000 / 1000 Balance 480 / 480 1000 / 1000 Weight 70.1 kg Intake: IV 1000 / 1000 NS Inj 1,000 ML @ 100 mls/hr IV 1000 / 1000 .CONT .Q10H GISEL Rx#:[id number] Oral 480 / 480 Other: # Voids 6 Date of Last Bowel Movement 06/14/18 06/14/18 # Bowel Movements 1 Results - Labs CBC & Chem 7: 06/11/18 14:48 06/11/18 14:48 Microbiology 06/13/18 12:10 Lumbar Puncture Gram Stain - Final 06/13/18 12:10 Lumbar Puncture CSF Culture - Preliminary No growth in 48 hours - Imaging Impressions Lumbar Puncture Fluoroscopy 06/13/18 09:51 CONCLUSION: 1. Uncomplicated fluoroscopically guided lumbar puncture. Assessment and Plan - Plan Ms. Delgado is a pleasant 83-year-old female with a history of dementia, follicular lymphoma and recently diagnosed shingles on her right side of the abdominal wall who presents to the emergency department due to worsening mental condition. Her daughter, compared to patient's baseline 11-12 weeks ago she has declined quite a bit. She was treated for shingles as well as UTI in the outpatient setting. 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 I encouraged for an outpatient evaluation by neurology. -Patient's headache and dizziness 3 weeks prior to onset of shingles concerning for any viral encephalopathy. -LP done by IR. -Serology for VZV IGM ab pending. We will also follow CSF studies -Discussed with patient's daughter. We will request a neurology evaluation as well. CKD stage III - Creatinine 1.2. Baseline appears to be around 1.3. - Avoid Nephrotoxins. Recent UTI - Cx is negative. We will continue Cipro 200mg BID for suspected partially treated UTI. History of follicular lymphoma -no acute concerns. Full code. SCDs.
--- NOTE | 2018-06-15 11:02 | P.PN ---
Subjective Interval history: Follow up for dementia, UTI, worsened mental status. Patient is sitting at the side of the bed. Doing well. She reports no nausea/vomiting today. Remains confused but pleasant. Physical Exam Vital signs: Vital Signs 06/14/18 16:59 06/14/18 20:00 06/15/18 00:00 Temperature 97.5 F L 97.7 F 97.8 F Pulse Rate 62 64 68 Respiratory Rate 18 16 16 Blood Pressure 135/75 101/57 L 115/62 Pulse Oximetry 95 94 L 94 L Intake & Output 06/14/18 06/15/18 06/15/18 18:59 06:59 18:59 Intake Total 480 / 480 1000 / 1000 Balance 480 / 480 1000 / 1000 Weight 70.1 kg Intake: IV 1000 / 1000 NS Inj 1,000 ML @ 100 mls/hr IV 1000 / 1000 .CONT .Q10H GISEL Rx#:[id number] Oral 480 / 480 Other: # Voids 6 Date of Last Bowel Movement 06/14/18 06/14/18 # Bowel Movements 1 Results - Labs CBC & Chem 7: 06/11/18 14:48 06/11/18 14:48 Microbiology 06/13/18 12:10 Lumbar Puncture Gram Stain - Final 06/13/18 12:10 Lumbar Puncture CSF Culture - Preliminary No growth in 48 hours - Imaging Impressions Lumbar Puncture Fluoroscopy 06/13/18 09:51 CONCLUSION: 1. Uncomplicated fluoroscopically guided lumbar puncture. Assessment and Plan - Plan Ms. Delgado is a pleasant 83-year-old female with a history of dementia, follicular lymphoma and recently diagnosed shingles on her right side of the abdominal wall who presents to the emergency department due to worsening mental condition. Her daughter, compared to patient's baseline 11-12 weeks ago she has declined quite a bit. She was treated for shingles as well as UTI in the outpatient setting. 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 I encouraged for an outpatient evaluation by neurology. -Patient's headache and dizziness 3 weeks prior to onset of shingles concerning for any viral encephalopathy. -LP done by IR. -Serology for VZV IGM ab pending. We will also follow CSF studies -Discussed with patient's daughter. We will request a neurology evaluation as well. Discussed with Dr. Watson yesterday. We will wait for his recommendations. After initial neurology eval, I suspect patient can follow up with Dr. Watson in the outpatient setting. CKD stage III - Creatinine 1.2. Baseline appears to be around 1.3. - Avoid Nephrotoxins. Recent UTI - Cx is negative. We will continue Cipro 200mg BID for suspected partially treated UTI. History of follicular lymphoma -no acute concerns. Full code. SCDs.
[2018-06-15] MEDS: Gabapentin 300 MG Capsule PO SCH ×2 (15:34→17:45)
--- NOTE | 2018-06-15 17:11 | P.PNID ---
Subjective Remarks: Patient intermittently confused No fever Daughter at bedside Antibiotics: Cipro Lines: Peripheral IV line Past Medical History: Dementia Allergies/Adverse Reactions: Allergies cefadroxil Allergy (Severe, Verified 06/11/18 13:11) Swelling of Lip/Tongue/Throat erythromycin base Allergy (Severe, Verified 06/11/18 13:11) Swelling of Lip/Tongue/Throat penicillin G Allergy (Severe, Verified 06/11/18 13:11) Swelling of Lip/Tongue/Throat sulfamethoxazole [From Bactrim] Adverse Reaction (Intermediate, Verified 13:11) Dizziness trimethoprim [From Bactrim] Adverse Reaction (Intermediate, Verified 06/11/18 13 :11) Dizziness Objective Vital Signs 06/14/18 20:00 06/15/18 00:00 06/15/18 12:00 Temperature 97.7 F 97.8 F 97.7 F Pulse Rate 64 68 69 Respiratory Rate 16 16 18 Blood Pressure 101/57 L 115/62 103/56 L Pulse Oximetry 94 L 94 L 96 Intake & Output 06/14/18 06/15/18 06/15/18 18:59 06:59 18:59 Intake Total 480 / 480 1000 / 1000 Balance 480 / 480 1000 / 1000 Weight 70.1 kg Intake: IV 1000 / 1000 NS Inj 1,000 ML @ 100 mls/hr IV 1000 / 1000 .CONT .Q10H GISEL Rx#:[id number] Oral 480 / 480 Other: # Voids 6 Date of Last Bowel Movement 06/14/18 06/14/18 # Bowel Movements 1 06/13/18 12:10 Lumbar Puncture Gram Stain - Final 06/13/18 12:10 Lumbar Puncture CSF Culture - Preliminary No growth in 48 hours 06/12/18 04:20 Clean Catch Urine Urine Culture - Final <10,000 cfu/mL mixed lazarus - no further workup Imaging: ITS Impressions Cervical Spine CT 06/11/18 14:08 CONCLUSION: 1. There continues to be diffuse moderate primary degenerative changes, disc degeneration and disc space narrowing throughout the entire cervical spine. 2. No significant changes compared to 2016. Head CT 06/11/18 14:08 CONCLUSION: 1. No focal or acute intracranial hemorrhage. 2. Interval development of bilateral subdural hygromas, left greater than right. 3. New Midline shift to the right by approximately 5 mm. . Abdomen/Pelvis CT 06/11/18 14:16 CONCLUSION: 1. Unremarkable and stable CT scan of the abdomen and pelvis compared to the prior examination. 2. No new or acute pathology. Lumbar Puncture Fluoroscopy 06/13/18 09:51 CONCLUSION: 1. Uncomplicated fluoroscopically guided lumbar puncture. Physical Exam: Alert, some confusion Pallor Chest : Clear Heart: S1S2 Abd - Soft No edema Assessment and Plan (1) UTI (urinary tract infection) Status: Acute Code(s): N39.0 - Urinary tract infection, site not specified (2) H/O herpes zoster Status: Acute Code(s): Z86.19 - Personal history of other infectious and parasitic diseases (3) Encephalopathy Status: Acute Code(s): G93.40 - Encephalopathy, unspecified - Plan 1. Recheck UAC 2. Cipro 250 mg po bid 3. VZV IgM pending 4. Agree with Neuro eval
[2018-06-15 19:08] LABS: Bilirubin,Urine Negative (Negative); Clarity,Urine Clear (Clear); Color,Urine Yellow (Yellw/Straw); Glucose,Urine (UA) Negative (Negative); Leukocyte Esterase,Urine Small (Negative); Nitrite,Urine Negative (Negative); Specific Gravity,Urine Less/Equal 1.005 (1.002-1.035); Urobilinogen,Urine 0.2 mg/dL (Less than 2)
[2018-06-15 19:14] LABS: Bacteria,Urine Occasional /hpf; RBC,Urine 0-3 /hpf (0-3); Squamous Epithelial Cell,Urine 0-5 /hpf (0-5)
--- NOTE | 2018-06-15 19:30 | MB ---
cc: Shorty Watson MD, PhD DATE: 06/15/2018 REASON FOR CONSULTATION: Declining mental status. 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 She has been having significant headaches as well as unsteadiness of gait as well. She also noted shingles in the right abdominal area, treated. She is aware of her memory loss and she feels she is having more trouble retaining things. PAST MEDICAL HISTORY: Remarkable for recent shingles. She does have a history of dementia, depression, dyslipidemia, GERD, follicular lymphoma, spinal fracture, urinary tract infection. MEDICATIONS: Currently are Tylenol, milk of magnesia, Dulcolax, Cipro, Neurontin, lactulose, Senokot, Zofran p.r.n. NEUROLOGICAL EXAMINATION: VITAL SIGNS: Blood pressure 115/62, pulse 68, respiratory rate 16, temperature 97.8 degrees. HIGHER CORTICAL FUNCTION: She is alert. She is disoriented to the date and the place. Recalls 0/3 objects in 3 minutes. Remote memory is poor for president recall. She is able to tell me where she worked as a nurse. She cannot tell me the name of her nursing school, however. Calculations are normal. She follows commands. Speech is fluent with no paraphasic errors. Naming ability is normal. There is no neglect phenomena. CRANIAL NERVES: 2-12 are normal. MOTOR: Reveals 5/5 strength of all groups in both the upper and lower extremities. There is no drift. Fine motor skills are within normal limits. IMAGING DATA: A CT of the brain shows bilateral subdural hygromas without mass effect. They are relatively small, measuring 7 mm on the right with some degree of midline shift by 5 mm. The left is 1.2 cm. This is new since the previous examination of 03/21/2018. LABORATORY DATA: White count 6900, hemoglobin 15.2, hematocrit 44%, platelet count 162,000. PT 11.1, INR 1.1. Sodium 140, potassium 3.8, chloride 106, CO2 of 22.8, BUN 22, creatinine 1.2, GFR 43, glucose 91, calcium 9.7, AST 25, ALT 45. UA, pH is 5.5, specific gravity 1.025, ketones 15, WBC 9-20. CSF, 84 RBCs, 3 WBCs, 100% lymphocytes, glucose 48. Herpes DNA PCR pending. CSF culture is no growth so far. Urine culture is negative so far. ASSESSMENT AND PLAN: Dementia, now with progressive decline in mental status. She does have evidence of subdural hygromas with some mass effect, which could be a factor. I would like to get an MRI of the brain to further evaluate this to rule out any underlying cerebral edema and consider a neurosurgical evaluation. We will get an EEG to be sure there is no subclinical seizures related and check additional labs including B12 level, thyroid panel and ammonia. Shorty Watson MD, PhD REED/moses , 06:55 PM , 07:03 PM
[2018-06-16] MEDS: Ciprofloxacin 250 MG Tablet PO SCH ×2 (08:08→20:34)
[2018-06-16] MEDS: Gabapentin 300 MG Capsule PO SCH ×3 (08:08→18:13)
--- NOTE | 2018-06-16 09:37 | P.PN ---
Subjective Interval history: Follow up for dementia, UTI, worsened mental status. Patient is alert but remains confused. She is aware that she is confused. No fever, chills. Physical Exam Vital signs: Vital Signs 06/15/18 12:00 06/15/18 16:00 06/15/18 20:00 Temperature 97.7 F 97.4 F L 97.4 F L Pulse Rate 69 70 71 Respiratory Rate 18 18 16 Blood Pressure 103/56 L 130/71 115/61 Pulse Oximetry 96 98 97 06/16/18 00:00 06/16/18 08:00 Temperature 96.6 F L 97.6 F Pulse Rate 61 61 Respiratory Rate 16 16 Blood Pressure 141/66 H 121/58 L Pulse Oximetry 97 97 Intake & Output 06/15/18 06/16/18 06/16/18 18:59 06:59 18:59 Intake Total 590 / 590 1000 / 1000 Output Total 0 / 0 Balance 590 / 590 1000 / 1000 Weight 70.1 kg Intake: IV 1000 / 1000 NS Inj 1,000 ML @ 100 mls/hr IV 1000 / 1000 .CONT .Q10H GISEL Rx#:[id number] Oral 590 / 590 Output: Stool 0 / 0 Other: # Voids 5 3 Results - Labs CBC & Chem 7: 06/11/18 14:48 06/11/18 14:48 Laboratory Results - last 24 hr 06/15/18 06/15/18 06/15/18 18:36 20:40 20:40 Ammonia Vitamin B12 2243 H TSH 1.090 Urine Color Yellow Urine Clarity Clear Urine pH 6.0 Ur Specific [place] Less/equal 1.005 Urine Protein Negative Urine Glucose (UA) Negative Urine Ketones Negative Urine Occult Blood Negative Urine Nitrate Negative Urine Bilirubin Negative Urine Urobilinogen 0.2 Ur Leukocyte Esterase Small H Urine RBC 0-3 Urine WBC 6-8 H Ur Squamous Epith Cells 0-5 Urine Bacteria Occasional H Micro UA Comment Culture not ind Ur Microscopic Review Microscopic reviewed Urine Culture Comments Culture not ind 06/15/18 20:40 Ammonia 16 Vitamin B12 TSH Urine Color Urine Clarity Urine pH Ur Specific [place] Urine Protein Urine Glucose (UA) Urine Ketones Urine Occult Blood Urine Nitrate Urine Bilirubin Urine Urobilinogen Ur Leukocyte Esterase Urine RBC Urine WBC Ur Squamous Epith Cells Urine Bacteria Micro UA Comment Ur Microscopic Review Urine Culture Comments Microbiology 06/13/18 12:10 Lumbar Puncture Gram Stain - Final 06/13/18 12:10 Lumbar Puncture CSF Culture - Preliminary No growth in 48 hours Assessment and Plan - Plan Ms. Delgado is a pleasant 83-year-old female with a history of dementia, follicular lymphoma and recently diagnosed shingles on her right side of the abdominal wall who presents to the emergency department due to worsening mental condition. Her daughter, compared to patient's baseline 11-12 weeks ago she has declined quite a bit. She was treated for shingles as well as UTI in the outpatient setting. 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 I encouraged for an outpatient evaluation by neurology. -Patient's headache and dizziness 3 weeks prior to onset of shingles concerning for any viral encephalopathy. -LP done by IR. -Serology for VZV IGM ab pending. We will also follow CSF studies -Discussed with patient's daughter. Neurology evaluated pt on 06/15/2018 and ordered MRI brain among other tests. -If Neurological work up is negative, we will discuss discharge options including home with family vs. SNF. CKD stage III - Creatinine 1.2. Baseline appears to be around 1.3. - Avoid Nephrotoxins. Recent UTI - Cx is negative. We will continue Cipro 200mg BID for suspected partially treated UTI. History of follicular lymphoma -no acute concerns. Full code. SCDs.
[2018-06-16] MEDS: Sod Chloride 0.9% Inj 1,000 ML IV.CONT SCH (10:00)
[2018-06-16] MEDS: Acetaminophen 325 MG Tablet PO PRN ×2 (10:06→22:04)
[2018-06-16] MEDS ORDERED: Gadobutrol PF 7.5 MMOL/7.5 ML Vial (for RAD) IV.SIG ONE (15:38)
--- NOTE | 2018-06-16 16:07 | MR ---
EXAM DATE: 06/16/2018 3:57 PM EDT AGE/SEX: 83 years / Female INDICATIONS: Cephalgia. Vertigo. CLINICAL DATA: This is the patient's initial encounter. Patient reports that signs and symptoms have been present for 2 days and indicates a pain score of 3/10. MEDICAL/SURGICAL HISTORY: . Follicular lymphoma. Tubal ligation. COMPARISON: [facility], CT HEAD W/O CONTRAST, 06/11/2018. [facility], MR BRAIN W AND W/O CONTRAST, 09/21/2015 . . TECHNIQUE: Multiplanar, multisequence examination of the brain was performed without and with 7 ml Ga davist (gadobutrol) contrast as a single exam dose. FINDINGS: Cerebrum: The ventricles are normal for age. There is bilateral cortical atrophy. No evidence of mi dline shift, mass lesion, hemorrhage or acute infarction. . There are bilateral chronic subdural hyg romas with approximately 1.2 cm separation on the left and 1 cm separation on the right. This correla sung with the recent CT scan of the brain. The pituitary gland and suprasellar cistern are normal in configuration. White Matter: No significant signal abnormalities are seen in the white matter. A few high signal sp ots are seen bilaterally consistent with ischemic demyelinization. Posterior Fossa: The cerebellum and brainstem are intact. The 4th ventricle is midline. The cerebel lopontine angle is unremarkable. The cerebellar tonsils are normal in position. Diffusion Imaging: No focal areas of restricted diffusion are seen. No evidence of acute infarction . Extracranial: The visualized portions of the orbits and paranasal sinuses are unremarkable. Post Contrast: No abnormal areas of parenchymal or dural enhancement. No evidence of blood-brain ba rrier breakdown. Except for the chronic bilateral subdural hygromas, no significant change compared to the prior MRI 2014. CONCLUSION: 1. Chronic bilateral subdural hygromas, left greater than right. 2. Bilateral cortical atrophy and chronic white matter changes. Electronically signed by: Jose Luis Olvera MD 06/16/2018 4:06 PM EDT
--- NOTE | 2018-06-16 17:08 | MG ---
cc: Eduarda Manzo MD EEG NUMBER: [id number] REFERRING PHYSICIAN: . CLINICAL HISTORY: In room 8309, with hyperventilation omitted, but only photic done awake. Unable to state name, somewhat confused. CT shows bilateral subdural hygromas, left more so than right. History of decline in mental status, on Cipro and Neurontin. DESCRIPTION OF RECORD: Patient has overall 5-6 Hz background. Photic stimulation is done at the beginning. There is a mild driving response. Overall, symmetric. IMPRESSION: Mildly slow background may be due to a mild encephalopathic process. No evidence of any epileptiform features. Clinical correlation. Eduarda Manzo MD DF/homer/ll , 03:55 PM , 04:01 PM
[2018-06-16 17:12] VITALS: RESP 16
[2018-06-16] MEDS: LORazepam 0.5 MG Tablet PO PRN (20:33)
[2018-06-16 21:39] VITALS: O2SAT 97
[2018-06-17 01:38] VITALS: BP 141/65; PULSE 60; TEMP 98.4
[2018-06-17] MEDS: Sod Chloride 0.9% Inj 1,000 ML IV.CONT SCH ×2 (03:34→04:38)
[2018-06-17] MEDS: Ciprofloxacin 250 MG Tablet PO SCH (08:21)
[2018-06-17] MEDS: Gabapentin 300 MG Capsule PO SCH (08:22)
[2018-06-17] MEDS: LORazepam 0.5 MG Tablet PO PRN (08:22)
--- NOTE | 2018-06-17 08:49 | P.DCO ---
- Physical Therapy Order: Evaluate and treat, Improve ambulation, Strength and gait training - Certification I have seen patient Mena Delgado on 06/17/18. My clinical findings support the need for the requested home health care services because: Limited mobility due to disease progression, Deconditioned with increased weakness, Limited ability to care for self, Need for psychosocial assistance, Impaired cognition/judgement, High risk of falls, Infection with risk of complications I certify that my clinical findings support that this patient is homebound because: Unsteady gait/balance, Unsafe to leave home unassisted, Need for psychosocial assistance, Non-ambulatory: confined to bed or chair, Unable to use public transportation
--- NOTE | 2018-06-17 08:57 | P.DS ---
Date of admission: 06/16/18 09:50 Primary care physician: Sheldon Gross MD Brief History from admission: Ms. Flores is a pleasant 83-year-old female with a history of dementia , follicular lymphoma who was admitted to the hospital on 06/11/2018 due to worsening mental condition after she fell recently. History is mostly obtained from patient's daughter at bedside. Apparently approximately 11 weeks ago patient complained of significant headache and dizziness. About 8 weeks ago she started having pain in her right flank area as well as the right side of the abdominal wall which eventually developed into typical shingles rash. She was treated by her primary care physician. Even though patient has dementia, she was living at an assisted living facility by herself before these symptoms started. Per daughter, her condition has declined quite significantly. No chest pain, shortness of breath, fever or chills. No changes in bowel or bladder habits. She was recently treated for urinary tract infection as well. At the time of this interview, patient wakes up on verbal commands. She is pleasant but remains confused about where she is or what month/year. Family history: No family history of Alzheimer's or Parkinson's. Dad had heart disease and mom had breast cancer. Social history: Patient does not use tobacco, alcohol, illicit drugs. Patient update on day of discharge: Patient is doing well. More alert and oriented. Daughter at bedside states her mother is much improved. Daughter agrees with our plan to discharge patient. DS: Medications - Discharge Medications Prescriptions: ciprofloxacin HCl 250 mg PO Q12HR #6 tab gabapentin [Neurontin] 300 mg PO TID #90 cap DS: Summary Hospital Course: Ms. Delgado is a pleasant 83-year-old female with a history of dementia, follicular lymphoma and recently diagnosed shingles on her right side of the abdominal wall who presents to the emergency department due to worsening mental condition. Her daughter, compared to patient's baseline 11-12 weeks ago she has declined quite a bit. She was treated for shingles as well as UTI in the outpatient setting. 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 I encouraged for an outpatient evaluation by neurology. -Patient's headache and dizziness 3 weeks prior to onset of shingles concerning for any viral encephalopathy. -LP done by IR. -Serology for VZV IGM ab pending. We will also follow CSF studies -Discussed with patient's daughter. Neurology evaluated pt on 06/15/2018 and ordered MRI brain among other tests. -If Neurological work up is negative, we will discuss discharge options including home with family vs. SNF. CKD stage III - Creatinine 1.2. Baseline appears to be around 1.3. - Avoid Nephrotoxins. Recent UTI - Cx is negative. We will continue Cipro 200mg BID for suspected partially treated UTI. History of follicular lymphoma -no acute concerns. Full code. SCDs. - Time Spent with Patient Total time spent providing and/or coordinating discharge services: Less than 30 minutes Exam Vital signs: Vital Signs 06/16/18 12:00 06/16/18 16:00 06/16/18 20:00 Temperature 97.1 F L 97.2 F L 97.3 F L Pulse Rate 61 58 L 62 Respiratory Rate 17 16 16 Blood Pressure 134/66 130/68 115/58 L Pulse Oximetry 97 96 97 06/17/18 00:00 Temperature 98.4 F Pulse Rate 60 Respiratory Rate 16 Blood Pressure 141/65 H Pulse Oximetry 97 Intake & Output 06/16/18 06/17/18 06/17/18 18:59 06:59 18:59 Intake Total 1720 / 1720 200 / 200 0 / 0 Balance 1720 / 1720 200 / 200 0 / 0 Weight 70.1 kg Intake: IV 1000 / 1000 0 / 0 0 / 0 NS Inj 1,000 ML @ 100 mls/hr IV 1000 / 1000 0 / 0 0 / 0 .CONT .Q10H GISEL Rx#:[id number] Oral 720 / 720 200 / 200 Other: # Voids 4 2 Results Procedures completed during hospitalization: None. - Impressions ITS Impressions Cervical Spine CT 06/11/18 14:08 CONCLUSION: 1. There continues to be diffuse moderate primary degenerative changes, disc degeneration and disc space narrowing throughout the entire cervical spine. 2. No significant changes compared to 2016. Head CT 06/11/18 14:08 CONCLUSION: 1. No focal or acute intracranial hemorrhage. 2. Interval development of bilateral subdural hygromas, left greater than right. 3. New Midline shift to the right by approximately 5 mm. . Abdomen/Pelvis CT 06/11/18 14:16 CONCLUSION: 1. Unremarkable and stable CT scan of the abdomen and pelvis compared to the prior examination. 2. No new or acute pathology. Lumbar Puncture Fluoroscopy 06/13/18 09:51 CONCLUSION: 1. Uncomplicated fluoroscopically guided lumbar puncture. Head MRI 06/16/18 00:00 CONCLUSION: 1. Chronic bilateral subdural hygromas, left greater than right. 2. Bilateral cortical atrophy and chronic white matter changes. Discharge Plan - Discharge Disposition Patient Disposition: /Home Health Service - Discharge Condition Condition: Fair - Discharge Order Discharge Orders: Discharge Order (Routine); Ordered 06/17/18 Ordered By: Jo Felix - Discharge Details Anticipated Discharge Date: 06/17/18 Discharge Comment: Follow-up with PMD for enlarging hygroma and shift of midline - Physicians Team Primary Care Provider: Sheldon Gross Attending Provider: Jo Felix Other Providers: Mae Dean MD ; Shorty Watson MD, PhD
[2018-06-19 03:51] LABS: Varicella-Zoster V DNA PCR <500 (<500 copies)
[2018-06-19 14:42] LABS: Varicella-Zoster DNAPCR Source CSF
== END 2018-06-17 09:50 | disposition home health service (06) ==
LOC: PHED 12:51 → PHEDA 12:51 → PH3 18:53
PROVIDERS: ADMIT Hospitalist; ATTEND Hospitalist